=== PATIENT | male | born 1980 | race African-American/Black ===

== ENCOUNTER 2018-03-25 20:47 | Emergency (ER) | payer SELFPAY ==
--- OUTSIDE RECORDS SUMMARY | 2018-03-25 20:49 | XMS REPORT ---
:1980 [facility] Organization [facility] Address [address] [place] [address] Dr. Michel [address] [place] [id number] Care Team Providers Name Role Phone Unavailable Unavailable Unavailable Problems This patient has no known problems. Allergies, Adverse Reactions, Alerts This patient has no known allergies or adverse reactions. Medications This patient has no known medications.
--- NOTE | 2018-03-25 23:15 | ER ---
Nurse's Notes [facility] Name: Alden Corona Age: 37 yrs Sex: Male : 1980 Arrival Date: 03/25/2018 Time: 20:53 Bed 13 Private MD: Diagnosis: Sprain of ankle Presentation: 03/25 20:58 Presenting complaint: Patient states: Left ankle swelling for about a week but pain lp1 began today; Able to bear weight but uncomfortable; denies any injury. Transition of care: patient was not received from another setting of care. Onset of symptoms was March 25, 2018. Risk Assessment: Do you want to hurt yourself or someone else? Patient reports no desire to harm self or others. Initial Sepsis Screen: Does the patient meet any 2 criteria? No. Patient's initial sepsis screen is negative. Does the patient have a suspected source of infection? No. Patient's initial sepsis screen is negative. Care prior to arrival: None. 20:58 Method Of Arrival: Ambulatory lp1 20:58 Acuity: SARA 4 lp1 Historical: - Allergies: 21:00 PENICILLINS; lp1 - Home Meds: 21:00 "HIV med" [Active]; lp1 - PMHx: 21:00 HIV; lp1 - PSHx: 21:00 Knee surgery; lp1 - Immunization history:: Adult Immunizations up to date. - Social history:: Smoking status: Patient/guardian denies using tobacco. - Ebola Screening: : No symptoms or risks identified at this time. Screenin:00 Abuse screen: Denies threats or abuse. Denies injuries from another. Nutritional lp1 screening: No deficits noted. Tuberculosis screening: No symptoms or risk factors identified. Fall Risk None identified. Assessment: 22:13 General: Appears in no apparent distress. comfortable, Behavior is calm, cooperative, tl2 appropriate for age. Pain: Complains of pain in anterior aspect of right ankle. Neuro: Level of Consciousness is awake, alert, obeys commands, Oriented to person, place, time, situation. Respiratory: Airway is patent Respiratory effort is even, unlabored, Respiratory pattern is regular, symmetrical. GI: No signs and/or symptoms were reported involving the gastrointestinal system. Derm: Skin is pink, warm \\T\\ dry. Musculoskeletal: Swelling present in left ankle. 23:34 Reassessment: Patient appears in no apparent distress at this time. Patient and/or tl2 family updated on plan of care and expected duration. Pain level reassessed. Patient is alert, oriented x 3, equal unlabored respirations, skin warm/dry/pink. pt verbalized understanding of discharge instructions, need for follow up with ortho, crutch use and prescription usage. Vital Signs: 20:59 BP 141 / 91; Pulse 94; Resp 18; Temp 97.9(O); Pulse Ox 100% on R/A; Weight 96.62 kg; lp1 Height 5 ft. 11 in. (180.34 cm); Pain 5/10; 20:59 Body Mass Index 29.71 (96.62 kg, 180.34 cm) lp1 ED Course: 20:53 Patient arrived in ED. es 20:59 Triage completed. lp1 21:00 Arm band placed on left wrist. lp1 21:02 José Luis Max PA is PHCP. [facility] 21:02 Cameron Hardwick MD is Attending Physician. [facility] 22:05 X-ray completed. Portable x-ray completed in exam room. Patient tolerated procedure ls3 well. 22:06 Ankle Left 3 View In Process Unspecified. EDMS 22:12 Heather Santiago, RN is Primary Nurse. tl2 22:14 Patient has correct armband on for positive identification. Bed in low position. Call tl2 light in reach. Side rails up X 1. Adult w/ patient. 23:13 Shabbir Zhou MD is Referral Physician. [facility] 23:27 Orthoglass splint: left ankle. ag4 23:32 Crutch training done. tl2 23:34 No provider procedures requiring assistance completed. Patient did not have IV access tl2 during this emergency room visit. Administered Medications: No medications were administered Outcome: 23:14 Discharge ordered by . [facility] 23:34 Discharged to home with crutches, with friend. tl2 23:34 Condition: stable 23:34 Discharge instructions given to patient, Instructed on discharge instructions, follow up and referral plans. medication usage, crutch walking, Demonstrated understanding of instructions, follow-up care, medications, crutch walking, Prescriptions given X 1. 23:36 Patient left the ED. tl2 Signatures: Dispatcher [employer] EDMS José Luis Max PA PA jmm Salyer, Edna es Giang, Luana, RN RN lp1 Heather Santiago RN RN tl2 Zeina Peacock ls3 Alpesh, Tima ag4
--- NOTE | 2018-03-25 23:15 | EDPHYS ---
Physician Documentation [facility] Name: Alden Corona Age: 37 yrs Sex: Male : 1980 Arrival Date: 03/25/2018 Time: 20:53 Bed 13 Private MD: ED Physician Cameron Hardwick HPI: 03/25 21:18 This 37 yrs old Black Male presents to ER via Ambulatory with complaints of ANKLE jmm SWOLLEN. 21:18 The patient presents with an injury, pain. Onset: The symptoms/episode began/occurred 1 jmm week(s) ago. This is a 37 year old male that presents to the ED with complaints of left ankle pain and swelling. patient states he injured his knee approx 2 weeks ago. swelling to the ankle began 1 week ago with pain for the past day. denies known injury. patient is instructor kindergarten. Historical: - Allergies: 21:00 PENICILLINS; lp1 - Home Meds: 21:00 "HIV med" [Active]; lp1 - PMHx: 21:00 HIV; lp1 - PSHx: 21:00 Knee surgery; lp1 - Immunization history:: Adult Immunizations up to date. - Social history:: Smoking status: Patient/guardian denies using tobacco. - Ebola Screening: : No symptoms or risks identified at this time. ROS: 21:18 Constitutional: Negative for fever, chills, and weight loss, Cardiovascular: Negative jmm for chest pain, palpitations, and edema, Respiratory: Negative for shortness of breath, cough, wheezing, and pleuritic chest pain. 21:18 MS/extremity: Positive for pain, swelling. 21:18 All other systems are negative. Exam: 21:18 Constitutional: This is a well developed, well nourished patient who is awake, alert, jmm and in no acute distress. Head/Face: atraumatic. Eyes: EOMI, no conjunctival erythema appreciated ENT: Moist Mucus Membranes Neck: Trachea midline, Supple Chest/axilla: Normal chest wall appearance and motion. Cardiovascular: Regular rate and rhythm. No edema appreciated Respiratory: Normal respirations, no respiratory distress appreciated Back: Normal ROM 21:18 Musculoskeletal/extremity: swelling is appreciated to the left lateral malleolus, compartments are soft, dull dorsalis pulse, NVI. 21:18 Skin: Appearance: Color: normal in color. 21:18 Neuro: Orientation: is normal, Mentation: is normal, Memory: is normal. 21:18 Psych: Behavior/mood is pleasant, cooperative. Vital Signs: 20:59 BP 141 / 91; Pulse 94; Resp 18; Temp 97.9(O); Pulse Ox 100% on R/A; Weight 96.62 kg; lp1 Height 5 ft. 11 in. (180.34 cm); Pain 5/10; 20:59 Body Mass Index 29.71 (96.62 kg, 180.34 cm) lp1 Procedures: 21:18 Splinting: Splint applied to left leg using Orthoglass splint, applied by tech. jonathon Examined by me, post splint application: neurovascular intact, 2+ distal pulses palpable, brisk capillary refill noted, Patient tolerated well. MDM: 21:18 Patient medically screened. [facility] 23:13 Data reviewed: vital signs, nurses notes. Counseling: I had a detailed discussion with jonathon the patient and/or guardian regarding: the historical points, exam findings, and any diagnostic results supporting the discharge/admit diagnosis, radiology results, the need for outpatient follow up, to return to the emergency department if symptoms worsen or persist or if there are any questions or concerns that arise at home. 03/25 21:56 Order name: Ankle Left 3 View [facility] 03/25 23:04 Order name: Posterior Orthoglass Ankle Splint; Complete Time: 23:24 [facility] 03/25 23:04 Order name: Crutches; Complete Time: 23:32 [facility] Administered Medications: No medications were administered Disposition: 03/26 03:57 Co-signature as Attending Physician, Cameron Hardwick MD I agree with the assessment and wa plan of care. Disposition: 03/25/18 23:14 Discharged to Home. Impression: Sprain of ankle. - Condition is Stable. - Discharge Instructions: Ankle Sprain. - Prescriptions for Ibuprofen 800 mg Oral Tablet - take 1 tablet by ORAL route every 8 hours As needed take with food; 30 tablet. - Medication Reconciliation Form, Thank You Letter, Antibiotic Education, Prescription Opioid Use form. - Follow up: Shabbir Zhou MD; When: 2 - 3 days; Reason: Recheck today's complaints, Continuance of care, Re-evaluation by your physician. Signatures: Dispatcher [employer] EDIA José Luis Max PA PA jmm Pena, Laura, RN RN lp1 Heather Santiago RN RN tl2 Cameron Hardwick MD MD wa Corrections: (The following items were deleted from the chart) 03/25 21:56 21:41 Ankle Left W Comparison+RAD.RAD.BRZ ordered. [facility] 23:36 23:14 03/25/2018 23:14 Discharged to Home. Impression: Sprain of ankle. Condition is tl2 Stable. Forms are Medication Reconciliation Form, Thank You Letter, Antibiotic Education, Prescription Opioid Use. Follow up: Dr. Shabbir Zhou; When: 2 - 3 days; Reason: Recheck today's complaints, Continuance of care, Re-evaluation by your physician. jonathon
--- NOTE | 2018-03-26 09:09 | RAD REPORT ---
EXAM DESCRIPTION: RAD - Ankle Left 3 View -03/25/2018 10:05 pm CLINICAL HISTORY: Left ankle pain FINDINGS: No fracture or dislocation is seen. Soft tissue swelling is present. Mild osteoarthritis is seen
== END 2018-03-25 23:36 | disposition home or self-care (01) ==
LOC: ER 20:47
PROC: 2W3RX1Z Immobilization of Left Lower Leg using Splint (ICD-10-PCS; principal; 2018-03-25)
DX: S93.402A Sprain of unspecified ligament of left ankle, initial encounter (principal); X58.XXXA Exposure to other specified factors, initial encounter; Y93.89 Activity, other specified; Y92.9 Unspecified place or not applicable; Z21 Asymptomatic human immunodeficiency virus [HIV] infection status; Z88.0 Allergy status to penicillin
CPT/HCPCS: 99283

== ENCOUNTER 2018-04-26 11:50 | Emergency (ER) | payer SELFPAY ==
--- OUTSIDE RECORDS SUMMARY | 2018-04-26 11:52 | XMS REPORT ---
:1980 [facility] Address [address] [place] [address] Dr. Michel [address] [place] [id number] Care Team Providers Name Role Phone Unavailable Unavailable Unavailable Problems This patient has no known problems. Allergies, Adverse Reactions, Alerts This patient has no known allergies or adverse reactions. Medications This patient has no known medications.
--- NOTE | 2018-04-26 13:29 | RAD REPORT ---
EXAM DESCRIPTION: RAD - Chest Single View - 04/26/2018 1:14 pm CLINICAL HISTORY: Cough and congestion COMPARISON: None. TECHNIQUE: AP portable chest image was obtained 1303 hours . FINDINGS: Lungs are clear. Heart and vasculature are normal. No measurable pleural effusion and no p neumothorax. No acute bony abnormality seen. No acute aortic findings suspected. IMPRESSION: No acute cardiopulmonary process.
[2018-04-26] MEDS ORDERED: MAGNE/ALUM HYDROXD 30 ML UCUP ONE (13:30)
[2018-04-26] MEDS ORDERED: AZITHROMYCIN 250 MG TAB ONE (13:30)
[2018-04-26] MEDS ORDERED: LIDOCAINE VISCOUS 2% SOLN 15 ML UDC ONE (13:31)
[2018-04-26] MEDS ORDERED: KETOROLAC 30 MG/ML INJ ONE (13:31)
[2018-04-26] MEDS ORDERED: NA CHLORIDE 0.9% 1,000 ML ONE (13:31)
[2018-04-26] MEDS ORDERED: ONDANSETRON 4 MG/2 ML VIAL ONE (13:31)
[2018-04-26] MEDS ORDERED: FAMOTIDINE 20 MG/2 ML VIAL IV ONE (13:31)
[2018-04-26] MEDS ORDERED: MORPHINE 4 MG/ML SYR ONE (13:31)
[2018-04-26 13:48] LABS: Absolute Lymphocytes (CBC) 3.7 K/uL (0.7-4.9); Absolute Monocytes 0.8 K/uL (0.1-1.3); Absolute Neutrophil 4.9 K/uL (1.8-8.0); Basophils % 0.8 % (0-1.3); Eosinophils % 1.9 % (0-4.4); Hematocrit 37.1 % (39.6-49.0); Lymphocytes % 38.2 % (15.3-44.8); MPV 8.5 fL (7.6-11.3); Monocytes % 8.6 % (3.3-12.3); RBC Red Blood Cell Count 4.26 M/uL (4.33-5.43)
[2018-04-26 14:06] LABS: ALT/SGPT 31 U/L (12-78); AST/SGOT 25 U/L (15-37); Albumin 3.1 g/dL (3.4-5.0); Alkaline Phosphatase 70 U/L (45-117); BUN Blood Urea Nitrogen 5 mg/dL (7-18); Bicarbonate 31 mmol/L (21-32); Bilirubin Direct 0.1 mg/dL (0-0.2); Bilirubin Total 0.5 mg/dL (0.2-1.0); Glucose Level 93 mg/dL (74-106); Lipase 66 U/L (73-393); Potassium 3.7 mmol/L (3.5-5.1); Protein, Total 9.2 g/dL (6.4-8.2); Sodium Level 139 mmol/L (136-145)
--- NOTE | 2018-04-26 14:22 | ER ---
Nurse's Notes [facility] Name: Alden Corona Age: 38 yrs Sex: Male : 1980 Arrival Date: 04/26/2018 Time: 11:53 Bed 17 Private MD: Diagnosis: Acute bronchitis;Pain localized to upper abdomen Presentation: 04/26 11:58 Presenting complaint: N/V, productive cough, headache, sore throat, and left sided hb abdominal pain x 2 days. Transition of care: patient was not received from another setting of care. Onset of symptoms was April 25, 2018. Risk Assessment: Do you want to hurt yourself or someone else? Patient reports no desire to harm self or others. Care prior to arrival: None. 11:58 Method Of Arrival: Ambulatory hb 11:58 Acuity: SARA 3 hb 14:32 Initial Sepsis Screen: Does the patient meet any 2 criteria? No. Patient's initial tw2 sepsis screen is negative. Does the patient have a suspected source of infection? No. Patient's initial sepsis screen is negative. Historical: - Allergies: 12:00 PENICILLINS; hb - Home Meds: 12:00 "HIV med" [Active]; hb - PMHx: 12:00 HIV; hb - PSHx: 12:00 Knee surgery; hb - Immunization history:: Adult Immunizations up to date. - Social history:: Smoking status: Patient/guardian denies using tobacco, Patient/guardian denies using alcohol, street drugs, The patient lives with family. - Ebola Screening: : No symptoms or risks identified at this time. - Family history:: not pertinent. Screenin:31 Abuse screen: Denies threats or abuse. Nutritional screening: No deficits noted. tw2 Tuberculosis screening: No symptoms or risk factors identified. Fall Risk None identified. Assessment: 12:15 General: Appears in no apparent distress. Behavior is calm, cooperative, appropriate tw2 for age. Pain: Denies pain. Neuro: Level of Consciousness is awake, alert, obeys commands, Oriented to person, place, time, situation. Cardiovascular: Reports shortness of breath, Denies chest pain, Heart tones S1 S2 Patient's skin is warm and dry. Respiratory: Reports cough that is Airway is patent Respiratory effort is even, unlabored, Respiratory pattern is regular, symmetrical, Breath sounds are clear bilaterally. GI: Abdomen is flat, non-distended, Bowel sounds present X 4 quads. Reports nausea, vomiting. : No signs and/or symptoms were reported regarding the genitourinary system. EENT: Reports nasal congestion nasal discharge. Derm: No signs and/or symptoms reported regarding the dermatologic system. Musculoskeletal: Range of motion: intact in all extremities. 14:31 Reassessment: Patient appears in no apparent distress at this time. Patient and/or tw2 family updated on plan of care and expected duration. Pain level reassessed. Patient is alert, oriented x 3, equal unlabored respirations, skin warm/dry/pink. Patient states feeling better. Vital Signs: 11:59 BP 146 / 95; Pulse 87; Resp 16; Temp 98.4; Pulse Ox 100% on R/A; Weight 95.25 kg; hb Height 5 ft. 11 in. (180.34 cm); Pain 7/10; 14:30 BP 138 / 88; Pulse 80; Resp 17; Pulse Ox 100% on R/A; tw2 11:59 Body Mass Index 29.29 (95.25 kg, 180.34 cm) hb ED Course: 11:53 Patient arrived in ED. as 11:59 Triage completed. hb 12:00 Arm band placed on left wrist. hb 12:05 Bed in low position. Call light in reach. Pulse ox on. NIBP on. tw2 12:06 Jacob Sgugs MD is Attending Physician. ma2 12:17 Mildred Morfin, DORINDA is Primary Nurse. tw2 13:14 Chest Single View XRAY In Process Unspecified. EDMS 13:24 Missed attempt(s): 20 gauge in right antecubital area. Bleeding controlled, band aid mw2 applied, catheter tip intact. IV discontinued, blood was collected before IV was dc'd. 13:26 Inserted saline lock: 20 gauge in left antecubital area, using aseptic technique. mw2 14:30 Awaiting: provider to consult pt prior to discharge and completion of IV fluids. tw2 14:44 No provider procedures requiring assistance completed. IV discontinued, intact, tw2 bleeding controlled, No redness/swelling at site. Pressure dressing applied. Administered Medications: 12:30 Drug: Pepcid 20 mg Route: IVP; Site: left antecubital; tw2 14:44 Follow up: Response: No adverse reaction tw2 12:30 Drug: GI Cocktail without - (Maalox Suspension 30 ml, Lidocaine Liquid 2 % 15 tw2 ml) Route: PO; 14:44 Follow up: Response: No adverse reaction tw2 12:32 Drug: morphine 4 mg Route: IVP; Site: left antecubital; tw2 14:44 Follow up: Response: No adverse reaction tw2 12:32 Drug: Zofran 4 mg Route: IVP; Site: left antecubital; tw2 14:44 Follow up: Response: No adverse reaction tw2 12:34 Drug: TORadol 30 mg Route: IVP; Site: left antecubital; tw2 14:44 Follow up: Response: No adverse reaction; Pain is decreased tw2 14:44 Follow up: Response: No adverse reaction tw2 13:37 Drug: NS 0.9% 1000 ml Route: IV; Rate: 1 bolus; Site: left antecubital; tw2 14:44 Follow up: Response: No adverse reaction; IV Status: Completed infusion; IV Intake: tw2 1000ml 13:39 Drug: AZITHromycin 500 mg Route: PO; tw2 14:44 Follow up: Response: No adverse reaction tw2 Intake: 14:44 IV: 1000ml; Total: 1000ml. tw2 Outcome: 14:21 Discharge ordered by . ma2 14:44 Patient left the ED. dm5 14:44 Discharged to home ambulatory. tw2 14:44 Condition: stable 14:44 Discharge instructions given to patient, Instructed on discharge instructions, follow up and referral plans. the need for admit, no drinking with medication, no driving heavy equipment, medication usage, Demonstrated understanding of instructions, follow-up care, medications, Prescriptions given X 4. Signatures: Dispatcher [employer] EDVA Afua Ramesh RN RN dm5 Ariane Hernandez Heather, RN RN hb Wise, Tara, RN RN tw2 Jacob Suggs MD MD ma2 Donta Mcdonnell mw2 Corrections: (The following items were deleted from the chart) 13:45 13:26 Inserted saline lock: 20 gauge in left antecubital area, using aseptic technique. mw2 Blood collected. mw2
--- NOTE | 2018-04-26 14:22 | EDPHYS ---
Physician Documentation [facility] Name: Alden Corona Age: 38 yrs Sex: Male : 1980 Arrival Date: 04/26/2018 Time: 11:53 Bed 17 Private MD: ED Physician Jacob Suggs HPI: 04/26 12:58 This 38 yrs old Black Male presents to ER via Ambulatory with complaints of Flu ma2 Symptoms. 12:58 Onset: The symptoms/episode began/occurred gradually, 2 day(s) ago. Severity of ma2 symptoms: At their worst the symptoms were moderate, in the emergency department the symptoms are unchanged. Associated signs and symptoms: Pertinent negatives: ear ache, rhinorrhea, vomiting. The patient has experienced similar episodes in the past. Historical: - Allergies: 12:00 PENICILLINS; hb - Home Meds: 12:00 "HIV med" [Active]; hb - PMHx: 12:00 HIV; hb - PSHx: 12:00 Knee surgery; hb - Immunization history:: Adult Immunizations up to date. - Social history:: Smoking status: Patient/guardian denies using tobacco, Patient/guardian denies using alcohol, street drugs, The patient lives with family. - Ebola Screening: : No symptoms or risks identified at this time. - Family history:: not pertinent. ROS: 12:58 Constitutional: Negative for fever, chills, and weight loss, Cardiovascular: Negative ma2 for chest pain, palpitations, and edema, Respiratory: Negative for shortness of breath, cough, wheezing, and pleuritic chest pain. 12:58 MS/Extremity: Negative for injury and deformity. 12:58 ENT: Positive for nasal discharge, rhinorrhea, Negative for tinnitus. 12:58 Respiratory: Positive for cough, Negative for hemoptysis, shortness of breath, acute changes. 12:58 All other systems are negative. Exam: 12:58 Constitutional: This is a well developed, well nourished patient who is awake, alert, ma2 and in no acute distress. ENT: Nares patent. No nasal discharge, no septal abnormalities noted. Tympanic membranes are normal and external auditory canals are clear. Oropharynx with no redness, swelling, or masses, exudates, or evidence of obstruction, uvula midline. Mucous membranes moist. Chest/axilla: Normal chest wall appearance and motion. Nontender with no deformity. No lesions are appreciated. Cardiovascular: Regular rate and rhythm with a normal S1 and S2. No gallops, murmurs, or rubs. Normal PMI, no JVD. No pulse deficits. Respiratory: Lungs have equal breath sounds bilaterally, clear to auscultation and percussion. No rales, rhonchi or wheezes noted. No increased work of breathing, no retractions or nasal flaring. Abdomen/GI: Soft, non-tender, with normal bowel sounds. No distension or tympany. No guarding or rebound. No evidence of tenderness throughout. MS/ Extremity: Pulses equal, no cyanosis. Neurovascular intact. Full, normal range of motion. Neuro: Awake and alert, GCS 15, oriented to person, place, time, and situation. Cranial nerves II-XII grossly intact. Motor strength 5/5 in all extremities. Sensory grossly intact. Cerebellar exam normal. Normal gait. Vital Signs: 11:59 BP 146 / 95; Pulse 87; Resp 16; Temp 98.4; Pulse Ox 100% on R/A; Weight 95.25 kg; hb Height 5 ft. 11 in. (180.34 cm); Pain 7/10; 14:30 BP 138 / 88; Pulse 80; Resp 17; Pulse Ox 100% on R/A; tw2 11:59 Body Mass Index 29.29 (95.25 kg, 180.34 cm) hb MDM: 12:06 Patient medically screened. [facility] 12:58 Differential Diagnosis: Bronchitis Influenza Upper Respiratory Infection Sinusitis ri2 Pharyngitis. 14:20 Data reviewed: vital signs, nurses notes. Counseling: I had a detailed discussion with ma2 the patient and/or guardian regarding: the historical points, exam findings, and any diagnostic results supporting the discharge/admit diagnosis, the presence of at least one elevated blood pressure reading (>120/80) during this emergency department visit, the need for outpatient follow up. Response to treatment: the patient's symptoms have markedly improved after treatment. 04/26 12:41 Order name: Influenza Screen (a \\T\\ B); Complete Time: 14:20 [facility] 03 12:41 Order name: Basic Metabolic Panel; Complete Time: 14:20 [facility] 04/26 12:41 Order name: CBC with Diff; Complete Time: 14:20 [facility] 04/26 12:41 Order name: Creatinine for Radiology; Complete Time: 14:20 [facility] 04/26 12:41 Order name: Hepatic Function; Complete Time: 14:20 [facility] 04/26 12:41 Order name: Lipase; Complete Time: 14:20 [facility] 04/26 12:41 Order name: Chest Single View XRAY; Complete Time: 14:01 [facility] 04/26 12:41 Order name: IV Saline Lock; Complete Time: 13:36 [facility] 04/26 12:41 Order name: Labs collected and sent; Complete Time: 13:36 ma2 Administered Medications: 12:30 Drug: Pepcid 20 mg Route: IVP; Site: left antecubital; tw2 14:44 Follow up: Response: No adverse reaction tw2 12:30 Drug: GI Cocktail without - (Maalox Suspension 30 ml, Lidocaine Liquid 2 % 15 tw2 ml) Route: PO; 14:44 Follow up: Response: No adverse reaction tw2 12:32 Drug: morphine 4 mg Route: IVP; Site: left antecubital; tw2 14:44 Follow up: Response: No adverse reaction tw2 12:32 Drug: Zofran 4 mg Route: IVP; Site: left antecubital; tw2 14:44 Follow up: Response: No adverse reaction tw2 12:34 Drug: TORadol 30 mg Route: IVP; Site: left antecubital; tw2 14:44 Follow up: Response: No adverse reaction; Pain is decreased tw2 14:44 Follow up: Response: No adverse reaction tw2 13:37 Drug: NS 0.9% 1000 ml Route: IV; Rate: 1 bolus; Site: left antecubital; tw2 14:44 Follow up: Response: No adverse reaction; IV Status: Completed infusion; IV Intake: tw2 1000ml 13:39 Drug: AZITHromycin 500 mg Route: PO; tw2 14:44 Follow up: Response: No adverse reaction tw2 Disposition: 04/26/18 14:21 Discharged to Home. Impression: Acute bronchitis, Pain localized to upper abdomen. - Condition is Stable. - Discharge Instructions: Acute Bronchitis, [id number]. - Prescriptions for Tylenol- Codeine #3 300-30 mg Oral Tablet - take 2 tablet by ORAL route every 6 hours As needed; 30 tablet. Tessalon Perles 100 mg Oral Capsule - take 1 capsule by ORAL route every 8 hours As needed; 15 capsule. Zithromax Z- Junior 250 mg Oral Tablet - take 1 tablet by ORAL route as directed for 5 days Day 1 - take two (2) tablets one time. Day 2, 3, 4 , 5 take one (1) tablet once daily.; 6 tablet. Pepcid 20 mg Oral Tablet - take 1 tablet by ORAL route once daily for 10 days; 10 tablet. - Work release form, Medication Reconciliation Form, Thank You Letter, Antibiotic Education, Prescription Opioid Use form. - Follow up: Private Physician; When: Tomorrow; Reason: Continuance of care. Signatures: Dispatcher [employer] Afua Campbell RN RN dm5 Cherelle Delacruz RN RN Mildred Morfin RN RN tw2 Jacob Suggs MD MD ma2 Corrections: (The following items were deleted from the chart) 14:44 14:21 04/26/2018 14:21 Discharged to Home. Impression: Acute bronchitis; Pain localized dm5 to upper abdomen. Condition is Stable. Forms are Work release form, Medication Reconciliation Form, Thank You Letter, Antibiotic Education, Prescription Opioid Use. Follow up: Private Physician; When: Tomorrow; Reason: Continuance of care. ma2
== END 2018-04-26 14:44 | disposition home or self-care (01) ==
LOC: ER 11:50
DX: J20.9 Acute bronchitis, unspecified (principal); R10.10 Upper abdominal pain, unspecified
CPT/HCPCS: 36415; 71045; 80048; 80076; 83690; 85025; 87804; 96361; 96374; 96375; 99284; J2405; J7030

== ENCOUNTER 2021-08-04 23:06 | Emergency (ER) | payer SELFPAY ==
--- OUTSIDE RECORDS SUMMARY | 2021-08-04 23:09 | XMS REPORT | Continuity of Care Document ---
:1980 Author Organization [facility] t Address [facility] [address] [place] [address] Care Team Providers Name Role Phone Pcp, Does Not Have A Primary Care Physician WAGNER Attending Clinician Unavailable [facility] Attending Clinician Unavailable Wagner TOVAR Attending Clinician Irma SETH, L Attending Clinician Unavailable Verónica Newman LVN Attending Clinician Unavailable Erica Lambert MD Attending Clinician Felix ANDERSON L Attending Clinician Unavailable Problems Condition Condition Condition Status Onset Resolution Last Treating Co mments Source Name Details Category Date Date Treatment Clinician Date Vomiting Vomiting Disease Active 2018-02 Unive rs 2-10 ity of 00:00: [place] 00 [facility] Fever in Fever in Disease Active 2018-02 Unive rs adult adult 2- ity of 00:00: [place] 00 [facility] History of History of Disease Active 2019-0 U nivers gonorrhea gonorrhea 3-08 ity of 00:00: [place] 00 [facility] History of History of Disease Active 2019-0 U nivers syphilis syphilis 3-08 ity of 00:00: [place] 00 [facility] 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 1-22 it y of ciency ciency 00:00: [place] virus virus 00 Medical infection) infection) Br anch Allergies, Adverse Reactions, Alerts Allergy Allergy Status Severity Reaction(s) Onset Inactive Treating Comm ents Source Name Type Date Date Clinician Coconut Propensi Active Swelling 2018-02 Unive rs ty to 2-09 ity of adverse 00:00: [place] reaction 00 Medical s Branch Pineappl Propensi Active Swelling 2019- Univ ers e ty to 03-26 ity of adverse 00:00: [place] reaction 00 Medical s Branch Seafood/ Propensi Active Swelling 2019- Univ ers Fish ty to 03-26 ity of adverse 00:00: [place] reaction 00 Medical s Branch COCONUT DRUG Active Swelling 2018- Univers INGREDI 03-26 ity of 00:00: [place] 00 [facility] PINEAPPL DRUG Active Swelling 2018- Univer s E INGREDI 03-26 ity of 00:00: [place] 00 [facility] SEAFOOD/ Food Active Swelling 2018- Univer s FISH 03-26 ity of 00:00: [place] 00 [facility] Penicill Propensi Active Unknown - 2018- Child Uni vers in ty to See comments 03-08 wen ity of adverse 00:00: allergy. [place] reaction 00 Medical s Branch PENICILL DRUG Active Unknown-Cmnt 2018-0 Un favio IN INGREDI 03-08 ity of 00:00: [facility] Social History Social Habit Start Date Stop Date Quantity Comments Source History of Cigarette Smoker Universi ty of tobacco use [facility] Tobacco use and 2021-06-20 2021-06-20 Former user Univers ty of exposure 00:00:00 00:00:00 [facility][birth year] At [birth year] [facility] Smoking Status Start Date Stop Date Source Former smoker 2021-06-20 00:00:00 2021-06-20 00:00:00 Universi ty of [facility] Current every day 2019-04-07 00:00:00 [facility] smoker [facility] Medications Ordered Filled Start Stop Current Ordering Indication Dosage Frequency Signature Comments Components Source Medication Medication Date Date Medication? Clinician (SIG) Name Name doxycycline Yes [id number] 1 po BID x Univers hyclate 100 06-20 28 days ity of mg capsule 00:00: [place] 00 [facility] doxycycline Yes [id number] 1 po BID x Univers hyclate 100 06-20 28 days ity of mg capsule 00:00: [facility] BIKTARVY Yes [id number] TAKE ONE U nivers 50-200-25 5-04 TABLET BY ity o f mg tablet 00:00: MOUTH [place] 00 DAILY Medical Branch BIKTARVY 2021-0 Yes [id number] TAKE ONE U nivers 50-200-25 5-04 TABLET BY ity o f mg tablet 00:00: MOUTH [place] 00 DAILY Medical Branch BIKTARVY 2021-0 Yes [id number] TAKE ONE U nivers 50-200-25 5-04 TABLET BY ity o f mg tablet 00:00: MOUTH [place] 00 DAILY Medical Branch BIKTARVY 2021-0 Yes [id number] TAKE ONE U nivers 50-200-25 5-04 TABLET BY ity o f mg tablet 00:00: MOUTH [place] 00 DAILY Medical Branch BIKTARVY 2020-1 Yes [id number] TAKE ONE U nivers 50-200-25 2-17 TABLET BY ity o f mg tablet 00:00: MOUTH [place] 00 DAILY Medical Branch BIKTARVY 2020-1 Yes [id number] TAKE ONE U nivers 50-200-25 2-17 TABLET BY ity o f mg tablet 00:00: [employer] 00 DAILY Medical Branch BIKTARVY 2020- 2022- No [id number] TAKE ONE Univers 50-200-25 2-17 05-04 TABLET BY ity of mg tablet 00:00: 00:00 [facility] [place] 00 :00 DAILY Medical Branch Immunizations Ordered Filled Immunization Date Status Comments [facility] e Immunization Name Name SARS-COV-2 COVID-19 2020-12-20 Completed Unive rsity of PFIZER VACCINE 00:00:00 [facility] Influenza Virus 2020-12-20 Completed Universit y of Vaccine Quad IM, 00:00:00 [facility] dical Preserv and ABX Branch Free 6 MO-64 YRS SARS-COV-2 COVID-19 2020-12-20 Completed Unive rsity of PFIZER VACCINE 00:00:00 [facility] Influenza Virus 2020-12-20 Completed Universit y of Vaccine Quad IM, 00:00:00 [place] Me dical Preserv and ABX Branch Free 6 MO-64 YRS SARS-COV-2 COVID-19 2020-12-20 Completed Unive rsity of PFIZER VACCINE 00:00:00 [facility] Influenza Virus 2020-12-20 Completed Universit y of Vaccine Quad IM, 00:00:00 [place] Me dical Preserv and ABX Branch Free 6 MO-64 YRS SARS-COV-2 COVID-19 2020-12-20 Completed Unive rsity of PFIZER VACCINE 00:00:00 [facility] Influenza Virus 2020-12-20 Completed Universit y of Vaccine Quad IM, 00:00:00 [facility] dical Preserv and ABX Branch Free 6 MO-64 YRS SARS-COV-2 COVID-19 2020-12-20 Completed Unive rsity of PFIZER VACCINE 00:00:00 [facility] Influenza Virus 2020-12-20 Completed Universit y of Vaccine Quad IM, 00:00:00 [facility] dical Preserv and ABX Branch Free 6 MO-64 YRS SARS-COV-2 COVID-19 2020-12-20 Completed Unive rsity of PFIZER VACCINE 00:00:00 [facility] Influenza Virus 2020-12-20 Completed Universit y of Vaccine Quad IM, 00:00:00 [facility] dical Preserv and ABX Branch Free 6 MO-64 YRS Influenza Virus 2019-12-20 Completed Universit y of Vaccine Quad .5 mL 00:00:00 [place] [facility] 6+ MO Branch Influenza Virus 2019-12-20 Completed Universit y of Vaccine Quad .5 mL 00:00:00 [place] [facility] IM 6+ MO Branch Influenza Virus 2019-12-20 Completed Universit y of Vaccine Quad .5 mL 00:00:00 [place] [facility] 6+ MO Branch Influenza Virus 2019-12-20 Completed Universit y of Vaccine Quad .5 mL 00:00:00 [place] [facility] 6+ MO Branch Influenza Virus 2019-12-20 Completed Universit y of Vaccine Quad .5 mL 00:00:00 [place] [facility] 6+ MO Branch Influenza Virus 2019-12-20 Completed Universit y of Vaccine Quad .5 mL 00:00:00 [place] [facility] 6+ MO Branch Hepatitis A Adult 2019-01-03 Completed Univers ity of 00:00:00 [facility] HPV9 2019-01-03 Completed University of 00:00:00 [facility] Hepatitis A Adult 2019-01-03 Completed Univers ity of 00:00:00 [facility] HPV9 2019-01-03 Completed University of 00:00:00 [facility] Hepatitis A Adult 2019-01-03 Completed Univers ity of 00:00:00 [facility] HPV9 2019-01-03 Completed University of 00:00:00 [facility] Hepatitis A Adult 2019-01-03 Completed Univers ity of 00:00:00 [facility] HPV9 2019-01-03 Completed University of 00:00:00 [facility] Hepatitis A Adult 2019-01-03 Completed Univers ity of 00:00:00 [facility] HPV9 2019-01-03 Completed University of 00:00:00 [facility] Hepatitis A Adult 2019-01-03 Completed Univers ity of 00:00:00 [facility] HPV9 2019-01-03 Completed University of 00:00:00 [facility] Influenza Virus 2018-11-18 Completed Universit y of Vaccine Quad .5 mL 00:00:00 [facility] 6+ MO [place] Influenza Virus 2018-11-18 Completed Universit y of Vaccine Quad .5 mL 00:00:00 [facility] 6+ MO [place] Influenza Virus 2018-11-18 Completed Universit y of Vaccine Quad .5 mL 00:00:00 [facility] 6+ MO Branch Influenza Virus 2018-11-18 Completed Universit y of Vaccine Quad .5 mL 00:00:00 [facility] 6+ MO [place] Influenza Virus 2018-11-18 Completed Universit y of Vaccine Quad .5 mL 00:00:00 [facility] 6+ MO [place] Influenza Virus 2018-11-18 Completed Universit y of Vaccine Quad .5 mL 00:00:00 [facility] 6+ MO Branch Pneumococcal 2018-11-04 Completed University o f Polysaccharide, 00:00:00 [place] Med ical PPSV23 (PNEUMOVAX) Branch Pneumococcal 2018-11-04 Completed University o f Polysaccharide, 00:00:00 [place] Med ical PPSV23 (PNEUMOVAX) Branch Pneumococcal 2018-11-04 Completed University o f Polysaccharide, 00:00:00 [place] Med ical PPSV23 (PNEUMOVAX) Branch Pneumococcal 2018-11-04 Completed University o f Polysaccharide, 00:00:00 [place] Med ical PPSV23 (PNEUMOVAX) Branch Pneumococcal 2018-11-04 Completed University o f Polysaccharide, 00:00:00 [place] [facility] ical PPSV23 (PNEUMOVAX) Branch Pneumococcal 2018-11-04 Completed University o f Polysaccharide, 00:00:00 [place] [facility] ical PPSV23 (PNEUMOVAX) Branch Hepatitis A Adult 2018-06-22 Completed Univers ity of 00:00:00 [facility] Pneumococcal 13 2018-06-22 Completed Universit y of Conjugate, PCV13 00:00:00 [facility] dical (Prevnar 13) Branch Hepatitis A Adult 2018-06-22 Completed Univers ity of 00:00:00 [facility] Pneumococcal 13 2018-06-22 Completed Universit y of Conjugate, PCV13 00:00:00 [facility] dical (Prevnar 13) Branch Hepatitis A Adult 2018-06-22 Completed Univers ity of 00:00:00 [facility] Pneumococcal 13 2018-06-22 Completed Universit y of Conjugate, PCV13 00:00:00 [facility] dical (Prevnar 13) Branch Hepatitis A Adult 2018-06-22 Completed Univers ity of 00:00:00 [facility] Pneumococcal 13 2018-06-22 Completed Universit y of Conjugate, PCV13 00:00:00 [facility] dical (Prevnar 13) Branch Hepatitis A Adult 2018-06-22 Completed Univers ity of 00:00:00 [facility] Pneumococcal 13 2018-06-22 Completed Universit y of Conjugate, PCV13 00:00:00 [facility] dical (Prevnar 13) Branch Hepatitis A Adult 2018-06-22 Completed Univers ity of 00:00:00 [facility] Pneumococcal 13 2018-06-22 Completed Universit y of Conjugate, PCV13 00:00:00 [facility] dical (Prevnar 13) Branch Influenza Virus 2018-03-08 Completed Universit y of Vaccine Quad .5 mL 00:00:00 [facility] [place] [facility] IM 6+ MO Branch Influenza Virus 2018-03-08 Completed Universit y of Vaccine Quad .5 mL 00:00:00 [place] [facility] 6+ MO Branch Influenza Virus 2018-03-08 Completed Universit y of Vaccine Quad .5 mL 00:00:00 [facility] [place] [facility] IM 6+ MO Branch Influenza Virus 2018-03-08 Completed Universit y of Vaccine Quad .5 mL 00:00:00 [place] [facility] IM 6+ MO Branch Influenza Virus 2018-03-08 Completed Universit y of Vaccine Quad .5 mL 00:00:00 [facility] [place] [facility] IM 6+ MO Branch Influenza Virus 2018-03-08 Completed Universit y of Vaccine Quad .5 mL 00:00:00 [facility] 6+ MO Branch Procedures This patient has no known procedures. Encounters Start End Encounter Admission Attending Care Care Encounter Source Date/Time Date/Time Type Type Clinicians Facility Department ID 2021-09-26 2021-09-26 Outpatient R WAGNER [facility] [id number] Univers 10:00:00 10:00:[id number] [facility] 2021-06-20 2021-06-20 Vegetable Tier [facility] UNIVERSIT [id number] Univers 11:45:00 12:00:00 Visit Brittnee Edward HEALTH [id number] it[id number] [id number] [address] 2021-06-20 2021-06-20 Outpatient R WAGNER [facility] [id number] Univers 11:45:00 11:45:[address] [facility] 2021-06-20 2021-06-20 Outpatient R [facility] [id number] Univers 11:45:00 [facility]:45:[id number] 2021-06-20 Allen Solis UNIVERSIT [id number] Univers 00:00:00 00:00:00 Management Jarek L Y HEALTH [id number] [id number] [id number] [place] [id number] [place] 2021-06-18 2021-06-18 Charmaine Newman UNIVERSIT [id number] Univers 00:00:00 00:00:00 Jenn L Y HEALTH [id number] [id number] [id number] [place] [id number] [place] 2021-06-16 2021-06-16 Case Paty UNIVERSIT [id number] Univers 00:00:00 00:00:00 Management Jenn L Y HEALTH [id number] [id number] [phone] [place] [id number] [place] 2021-06-16 2021-06-16 Ephraim Lambert UNIVERSIT [id number] Univers 00:00:00 00:00:00 Zhanna Maldonado [facility] [id number] [id number] [id number] [address] 2021-05-12 2021-05-12 Case Felix, [facility] [id number] Univers 00:00:00 00:00:00 Management Hloly Sanches Y [facility] [id number] it[id number] [id number] [address] 2021-05-09 2021-05-09 Outpatient Flaquita EDWARD [facility] [id number] Univers 11:00:00 11:00:00 BRITTNEE choi of [facility] Results This patient has no known results.
--- NOTE | 2021-08-04 23:17 | ER ---
Nurse's Notes [facility] Name: Alden Corona Age: 41 yrs Sex: Male : 1980 Arrival Date: 08/04/2021 Time: 23:09 Bed Waiting Private MD: Diagnosis: ED Course: 08/04 23:09 Patient arrived in ED. bp1 Administered Medications: No medications were administered Outcome: 23:16 Patient left the ED. ld1 Signatures: Barbara Atkins bp1 Melani Castorena, RN RN ld1
== END 2021-08-04 23:16 | disposition left against medical advice (07) ==
LOC: ER 23:06
DX: Z02.9 Encounter for administrative examinations, unspecified (principal)

== ENCOUNTER 2022-07-18 13:35 | Emergency (ER) | payer OTHER ==
--- OUTSIDE RECORDS SUMMARY | 2022-07-18 13:42 | XMS REPORT | Continuity of Care Document ---
:1980 Author Organization [facility] t Address [address] [place] [address] Care Team Providers Name Role Phone Pcp, Patient Does Not Have A Primary Care Physician [id number] BRITTNEE EDWARD Attending Clinician Unavailable [facility] Attending Clinician Unavailable Brittnee Kerr Attending Clinician Jarek Solis RN Attending Clinician Unavailable Zev Yousif MA Attending Clinician Unavailable [facility] Attending Clinician Unavailable Netta Denton MA Attending Clinician Unavailable Doctor Unassigned, [place] Attending Clinician Unavailable Jenn Newman LVN Attending Clinician Unavailable Erika Durbin RN Attending Clinician Unavailable Holly Washington MA Attending Clinician Unavailable Vaccine, Gal [facility] Attending Clinician Unavailable Pancho Chin MD Attending Clinician Zhanna Lambert MD Attending Clinician [phone] Erika Robins RN Attending Clinician Unavailable Jud Ace LVN Attending Clinician Unavailable BRIANNA MICHELLE Attending Clinician Unavailable MILLER JHAVERI Attending Clinician Unavailable MILLER JHAVERI Admitting Clinician Unavailable Payers Payer Name Policy Type Policy Number Effective Date Expiration Date S ource Problems Condition Condition Condition Status Onset Resolution Last Treating Co mments Source Name Details Category Date Date Treatment Clinician Date Vomiting Vomiting Disease Active 2018-02 Unive rs 2-10 ity of 00:00: [address] Fever in Fever in Disease Active 2019-1 Unive rs adult adult 2-09 ity of 00:00: [place] [facility] History of History of Disease Active 2019 U nivers gonorrhea gonorrhea 3-08 ity of 00:00: [place] 00 [facility] History of History of Disease Active 2019 U nivers syphilis syphilis 3- ity of 00:00: [place] 00 [facility] 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 03-08 it y of ciency ciency 00:00: [place] virus virus 00 Medical infection) infection) Br anch Allergies, Adverse Reactions, Alerts Allergy Allergy Status Severity Reaction(s) Onset Inactive Treating Comm ents Source Name Type Date Date Clinician COCONUT DRUG Active Swelling 2018- Univers INGREDI 03-26 ity of 00:00: [place] 00 [facility] PINEAPPL DRUG Active Swelling 2018-02 Univer s E INGREDI 03-26 ity of 00:00: [place] 00 [facility] SEAFOOD/ Food Active Swelling 2018-02 Univer s FISH 03-26 ity of 00:00: [place] 00 [facility] Coconut Propensi Active Swelling 2018-02 Unive rs ty to 2 ity of adverse 00:00: [place] reaction 00 Medical Branch Pineappl Propensi Active Swelling 2018-02 Univ ers e ty to 03-26 ity of adverse 00:00: [place] reaction 00 Medical s Branch Seafood/ Propensi Active Swelling 2018-02 Univ ers Fish ty to 03-26 ity of adverse 00:00: [place] reaction 00 [facility] PENICILL DRUG Active Unknown-Cmnt Un favio IN INGREDI 03-08 ity of 00:00: [place] 00 [facility] Penicill Propensi Active Unknown - 2018- Child Uni vers in ty to See comments 03-08 wen ity of adverse 00:00: allergy. [place] reaction 00 [facility] [place] Social History Social Habit Start Date Stop Date Quantity Comments Source History of Cigarette Smoker Universi ty of tobacco use [facility] Exposure to 2022-01-06 2022-01-16 Not sure University of SARS-CoV-2 00:00:00 15:43:00 [facility] (event) [place] Tobacco Comment 2022-01-16 2022-01-16 Patient states he Un iversity of 00:00:00 00:00:00 vapes everyday [facility] Tobacco use and 2022-01-16 2022-01-16 Former smokeless Uni versity of exposure 00:00:00 00:00:00 tobacco user [facility] [place] [facility] Sex Assigned At [birth year] Universit y of 00:00:00 00:00:00 [facility] Smoking Status Start Date Stop Date Source Ex-smoker 2022-01-16 00:00:00 2022-01-16 00:00:00 Universi ty [facility] [place] [facility] Smokes tobacco daily 2019-04-07 00:00:00 [facility] ity [facility] Medications Ordered Filled Start Stop Current Ordering Indication Dosage Frequency Signature Comments Components Source Medication Medication Date Date Medication? Clinician (SIG) Name Name penicillin 2022- Yes [id number] 2.410 Univers g 07-17 ity of benzathine 16:15: 04:14 [place] (BICILLIN 00 :00 Medical L-A) Branch injection 2.4 Million Units BIKTARVY 2021-02 Yes [id number] 1{tbl} Take 1 U nivers 50-200-25 2-02 tablet by [place]y o f mg tablet [place] morning[place] BIKTARVY 2021-02 Yes [id number] 1{tbl} Take 1 U nivers 50-200-25 2-02 tablet by ity o f [place] tablet [place] morning. [place] BIKTARVY 2021-02 Yes [id number] 1{tbl} Take 1 U nivers 50-200-25 2-02 tablet by ity o f [place] tablet [place] morning[place] BIKTARVY 2021-02 Yes [id number] 1{tbl} Take 1 U nivers 50-200-25 2-02 tablet by ity o f [place] tablet [place] morning. [place] BIKTARVY 2021-02 Yes [id number] 1{tbl} Take 1 U nivers 50-200-25 2-02 tablet by ity o f [place] tablet [place] morning. [place] BIKTARVY 2021-02 Yes [id number] 1{tbl} Take 1 U nivers 50-200-25 2-02 tablet by ity o f [place] tablet [place] morning. [place] AMANDA 2021-02 Yes [id number] 1{tbl} Take 1 U nivers 50-200-25 2-02 tablet by ity o f [place] tablet [place] morning. [place] AMANDA 2021-02 Yes [id number] 1{tbl} Take 1 U nivers 50-200-25 2-02 tablet by ity o f [place] tablet [place] morning. [place] AMANDA 2021-02 Yes [id number] 1{tbl} Take 1 U nivers 50-200-25 2-02 tablet by ity o f [place] tablet [place] morning. [place] AMANDA 2021-02 Yes [id number] 1{tbl} Take 1 U nivers 50-200-25 2-02 tablet by ity o f mg tablet [place] morning. [place] AMANDA 2021-02 Yes [id number] 1{tbl} Take 1 U nivers 50-200-25 2-02 tablet by ity o f mg tablet [place] morning. [place] doxycycline 2021-0 Yes [id number] 1 po BID x Univers hyclate 100 06-20 [id number] 28 days ity of mg capsule 00:00: [facility] doxycycline 2-0 Yes [id number] 1 po BID x Univers hyclate 100 06-20 [id number] 28 days ity of mg capsule 00:00: [facility] doxycycline 2022-0 Yes [id number] 1 po BID x Univers hyclate 100 06-20 [id number] 28 days ity of mg capsule 00:00: [facility] doxycycline 2-0 Yes [id number] 1 po BID x Univers hyclate 100 06-20 [id number] 28 days ity of mg capsule 00:00: [facility] doxycycline 2-0 Yes [id number] 1 po BID x Univers hyclate 100 06-20 [id number] 28 days ity of mg capsule 00:00: [place] 00 [facility] Branch doxycycline 2021-0 Yes [id number] 1 po BID x Univers hyclate 100 06-20 28 days ity of mg capsule 00:00: [place] [facility] doxycycline 2021-0 2021- No [id number] 1 po BID x Univers hyclate 100 06-20 28 days ity of mg capsule 00:00: 00:00 [place] 00 :00 Medical Branch doxycycline 2021-0 2021- No [id number] 1 po BID x Univers hyclate 100 06-20 28 days ity of mg capsule 00:00: 00:00 [place] 00 :00 Medical Branch BIKTARVY 2021-0 Yes [id number] TAKE ONE U nivers 50-200-25 5-04 TABLET BY ity o f mg tablet 00:00: [facility] DAILY Medical Branch BIKTARVY 2021-0 Yes [id number] TAKE ONE U nivers 50-200-25 5-04 TABLET BY ity o f mg tablet 00:00: [facility] DAILY Medical Branch BIKTARVY 2021-0 Yes [id number] TAKE ONE U nivers 50-200-25 5-04 TABLET BY ity o f mg tablet 00:00: [facility] DAILY Medical Branch BIKTARVY 2021-0 Yes [id number] TAKE ONE U nivers 50-200-25 5-04 TABLET BY ity o f mg tablet 00:00: [facility] DAILY Medical Branch BIKTARVY 2021-0 Yes [id number] TAKE ONE U nivers 50-200-25 5-04 TABLET BY ity o f mg tablet 00:00: [facility] DAILY Medical Branch BIKTARVY 2021-0 Yes [id number] TAKE ONE U nivers 50-200-25 5-04 TABLET BY ity o f mg tablet 00:00: [facility] DAILY Medical Branch BIKTARVY 2021-0 Yes [id number] TAKE ONE U nivers 50-200-25 5-04 TABLET BY ity o f mg tablet 00:00: [facility] DAILY Medical Branch BIKTARVY 2021-0 Yes [id number] TAKE ONE U nivers 50-200-25 5-04 TABLET BY ity o f mg tablet 00:00: [facility] DAILY Medical Branch BIKTARVY 2022-0 Yes [id number] TAKE ONE U nivers 50-200-25 5-04 TABLET BY ity o f mg tablet 00:00: MOUTH [place] 00 DAILY Medical Branch BIKTARVY Yes [id number] TAKE ONE U nivers 50-200-25 5-04 TABLET BY ity o f mg tablet 00:00: MOUTH [place] 00 DAILY Medical Branch BIKTARVY 0 2021- No [id number] TAKE ONE Univers 50-200-25 5-04 12-02 TABLET BY ity of mg tablet 00:00: 00:00 MOUTH [place] 00 :00 DAILY Medical Branch BIKTARVY 0 2021- No [id number] TAKE ONE Univers 50-200-25 5-04 12-02 TABLET BY ity of mg tablet 00:00: 00:00 MOUTH [place] 00 :00 DAILY Medical Branch BIKTARVY 2020-02- No [id number] TAKE ONE Univers 50-200-25 2-17 05-04 TABLET BY ity of mg tablet 00:00: 00:00 MOUTH [place] 00 :00 DAILY Medical Branch bictegrav-e 2020- No [id number] TAKE ONE Univers mtricit-ten 6-21 12-17 TABLET BY it y of ofov ala 00:00: 00:00 MOUTH [place] 50-200-25 00 :00 DAILY Medical mg tablet [place] Immunizations Ordered Filled Immunization Date Status Comments [facility] e Immunization Name Name SARS-COV-2 COVID-19 2022-01-16 Completed Unive rsity of AJ-SUCROSE 00:00:00 [place] Medica l VACCINE 12 YRS+, Branch BIVALENT 0.3ML, IM, (PFIZER LIRA TOP BOOSTER) SARS-COV-2 COVID-19 2022-01-16 Completed Unive rsity of AJ-SUCROSE 00:00:00 [place] [facility]ica l VACCINE 12 YRS+, Branch BIVALENT 0.3ML, IM, (PFIZER LIRA TOP BOOSTER) SARS-COV-2 COVID-19 2022-01-16 Completed Unive rsity of AJ-SUCROSE 00:00:00 [place] [facility]ica l VACCINE 12 YRS+, Branch BIVALENT 0.3ML, IM, (PFIZER LIRA TOP BOOSTER) SARS-COV-2 COVID-19 2022-01-16 Completed Unive rsity of AJ-SUCROSE 00:00:00 [place] [facility]ica l VACCINE 12 YRS+, Branch BIVALENT 0.3ML, IM, (PFIZER LIRA TOP BOOSTER) SARS-COV-2 COVID-19 2022-01-16 Completed Unive rsity of AJ-SUCROSE 00:00:00 [place] [facility]ica l VACCINE 12 YRS+, Branch BIVALENT 0.3ML, IM, (PFIZER LIRA TOP BOOSTER) SARS-COV-2 COVID-19 2022-01-16 Completed Unive rsity of AJ-SUCROSE 00:00:00 [place] [facility]ica l VACCINE 12 YRS+, Branch BIVALENT 0.3ML, IM, (PFIZER LIRA TOP BOOSTER) SARS-COV-2 COVID-19 2022-01-16 Completed Unive rsity of AJ-SUCROSE 00:00:00 [place] [facility]ica l VACCINE 12 YRS+, Branch BIVALENT 0.3ML, IM, (PFIZER LIRA TOP BOOSTER) SARS-COV-2 COVID-19 2022-01-16 Completed Unive rsity of AJ-SUCROSE 00:00:00 [place] [facility]ica l VACCINE 12 YRS+, Branch BIVALENT 0.3ML, IM, (PFIZER LIRA TOP BOOSTER) SARS-COV-2 COVID-19 2022-01-16 Completed Unive rsity of AJ-SUCROSE 00:00:00 [place] Medica l VACCINE 12 YRS+, Branch BIVALENT 0.3ML, IM, (PFIZER LIRA TOP) SARS-COV-2 COVID-19 2022-01-16 Completed Unive rsity of AJ-SUCROSE 00:00:00 [place] Medica l VACCINE 12 YRS+, Branch BIVALENT 0.3ML, IM, (PFIZER LIRA TOP) SARS-COV-2 COVID-19 2022-01-16 Completed Unive rsity of AJ-SUCROSE 00:00:00 [place] [facility]ica l VACCINE 12 YRS+, Branch BIVALENT 0.3ML, IM, (PFIZER LIRA TOP) SARS-COV-2 COVID-19 2021-09-26 Completed Unive rsity of PFIZER AJ-SUCROSE 00:00:00 [place] [facility] VACCINE (LIRA TOP) Branch SARS-COV-2 COVID-19 2021-09-26 Completed Unive rsity of PFIZER AJ-SUCROSE 00:00:00 [place] [facility] VACCINE (LIRA TOP) Branch SARS-COV-2 COVID-19 2021-09-26 Completed Unive rsity of PFIZER AJ-SUCROSE 00:00:00 [place] [facility] VACCINE (LIRA TOP) Branch SARS-COV-2 COVID-19 2021-09-26 Completed Unive rsity of PFIZER AJ-SUCROSE 00:00:00 [place] [facility] VACCINE (LIRA TOP) Branch SARS-COV-2 COVID-19 2021-09-26 Completed Unive rsity of PFIZER AJ-SUCROSE 00:00:00 [place] [facility] VACCINE (LIRA TOP) Branch SARS-COV-2 COVID-19 2021-09-26 Completed Unive rsity of PFIZER AJ-SUCROSE 00:00:00 [place] [facility] VACCINE (LIRA TOP) Branch SARS-COV-2 COVID-19 2021-09-26 Completed Unive rsity of PFIZER AJ-SUCROSE 00:00:00 [place] [facility] VACCINE (LIRA TOP) Branch SARS-COV-2 COVID-19 2021-09-26 Completed Unive rsity of PFIZER AJ-SUCROSE 00:00:00 [place] [facility] VACCINE (LIRA TOP) Branch SARS-COV-2 COVID-19 2021-09-26 Completed Unive rsity of PFIZER AJ-SUCROSE 00:00:00 [place] [facility] VACCINE (LIRA TOP) Branch SARS-COV-2 COVID-19 2021-09-26 Completed Unive rsity of PFIZER AJ-SUCROSE 00:00:00 [place] [facility] VACCINE (LIRA TOP) Branch SARS-COV-2 COVID-19 2021-09-26 Completed Unive rsity of PFIZER AJ-SUCROSE 00:00:00 [place] [facility] VACCINE (LIRA TOP) Branch SARS-COV-2 COVID-19 2021-09-26 Completed Unive rsity of PFIZER AJ-SUCROSE 00:00:00 [place] [facility] VACCINE (LIRA TOP) Branch SARS-COV-2 COVID-19 2021-09-26 Completed Unive rsity of PFIZER AJ-SUCROSE 00:00:00 [place] [facility] VACCINE (LIRA TOP) Branch SARS-COV-2 COVID-19 2021-09-26 Completed Unive rsity of PFIZER AJ-SUCROSE 00:00:00 [place] [facility] VACCINE (LIRA TOP) Branch SARS-COV-2 COVID-19 2021-09-26 Completed Unive rsity of PFIZER AJ-SUCROSE 00:00:00 [place] [facility] VACCINE (LIRA TOP) Branch SARS-COV-2 COVID-19 2021-09-26 Completed Unive rsity of PFIZER AJ-SUCROSE 00:00:00 [place] [facility] VACCINE (LIRA TOP) Branch SARS-COV-2 COVID-19 2021-09-26 Completed Unive rsity of PFIZER AJ-SUCROSE 00:00:00 [place] [facility] VACCINE (LIRA TOP) Branch SARS-COV-2 COVID-19 2021-09-26 Completed Unive rsity of PFIZER AJ-SUCROSE 00:00:00 [place] [facility] VACCINE (LIRA TOP) Branch SARS-COV-2 COVID-19 2020-12-20 Completed Unive rsity of PFIZER VACCINE 00:00:00 [facility] Influenza Virus 2020-12-20 Completed Universit y of Vaccine Quad IM, 00:00:00 [place] Me dical Preserv and ABX Branch Free 6 MO-64 YRS SARS-COV-2 COVID-19 2020-12-20 Completed Unive rsity of PFIZER VACCINE 00:00:00 [facility] Influenza Virus 2020-12-20 Completed Universit y of Vaccine Quad IM, 00:00:00 [place] Me dical Preserv and ABX Branch Free 6 MO-64 YRS SARS-COV-2 COVID-19 2020-12-20 Completed Unive rsity of PFIZER VACCINE 00:00:00 [facility] Influenza Virus 2020-12-20 Completed Universit y of Vaccine Quad IM, 00:00:00 [place] Me dical Preserv and ABX Branch Free 6 MO-64 YRS SARS-COV-2 COVID-19 2020-12-20 Completed Unive rsity of PFIZER VACCINE 00:00:00 [facility] Influenza Virus 2020-12-20 Completed Universit y of Vaccine Quad IM, 00:00:00 [place] Me dical Preserv and ABX Branch Free 6 MO-64 YRS SARS-COV-2 COVID-19 2020-12-20 Completed Unive rsity of PFIZER VACCINE 00:00:00 [facility] Influenza Virus 2020-12-20 Completed Universit y of Vaccine Quad IM, 00:00:00 [place] Me dical Preserv and ABX Branch Free 6 MO-64 YRS SARS-COV-2 COVID-19 2020-12-20 Completed Unive rsity of PFIZER VACCINE 00:00:00 [facility] Influenza Virus 2020-12-20 Completed Universit y of Vaccine Quad IM, 00:00:00 [place] Me dical Preserv and ABX Branch Free 6 MO-64 YRS SARS-COV-2 COVID-19 2020-12-20 Completed Unive rsity of PFIZER VACCINE 00:00:00 [facility] Influenza Virus 2020-12-20 Completed Universit y of Vaccine Quad IM, 00:00:00 [place] Ms dical Preserv and ABX Branch Free 6 MO-64 YRS SARS-COV-2 COVID-19 2020-12-20 Completed Unive rsity of PFIZER VACCINE 00:00:00 [facility] Influenza Virus 2020-12-20 Completed Universit y of Vaccine Quad IM, 00:00:00 [facility] dical Preserv and ABX Branch Free 6 MO-64 YRS SARS-COV-2 COVID-19 2020-12-20 Completed Unive rsity of PFIZER VACCINE 00:00:00 [facility] Influenza Virus 2020-12-20 Completed Universit y of Vaccine Quad IM, 00:00:00 [facility] dical Preserv and ABX Branch Free 6 MO-64 YRS SARS-COV-2 COVID-19 2020-12-20 Completed Unive rsity of PFIZER VACCINE 00:00:00 [facility] Influenza Virus 2020-12-20 Completed Universit y of Vaccine Quad IM, 00:00:00 [facility] dical Preserv and ABX Branch Free 6 MO-64 YRS SARS-COV-2 COVID-19 2020-12-20 Completed Unive rsity of PFIZER VACCINE 00:00:00 [facility] Influenza Virus 2020-12-20 Completed Universit y of Vaccine Quad IM, 00:00:00 [facility] dical Preserv and ABX Branch Free 6 MO-64 YRS SARS-COV-2 COVID-19 2020-12-20 Completed Unive rsity of PFIZER VACCINE 00:00:00 [facility] Influenza Virus 2020-12-20 Completed Universit y of Vaccine Quad IM, 00:00:00 [facility] dical Preserv and ABX Branch Free 6 MO-64 YRS SARS-COV-2 COVID-19 2020-12-20 Completed Unive rsity of PFIZER VACCINE 00:00:00 [facility] Influenza Virus 2020-12-20 Completed Universit y of Vaccine Quad IM, 00:00:00 [facility] dical Preserv and ABX Branch Free 6 MO-64 YRS SARS-COV-2 COVID-19 2020-12-20 Completed Unive rsity of PFIZER VACCINE 00:00:00 [facility] Influenza Virus 2020-12-20 Completed Universit y of Vaccine Quad IM, 00:00:00 [place] Me dical Preserv and ABX Branch Free 6 MO-64 YRS SARS-COV-2 COVID-19 2020-12-20 Completed Unive rsity of PFIZER VACCINE 00:00:00 [facility] Influenza Virus 2020-12-20 Completed Universit y of Vaccine Quad IM, 00:00:00 [place] Me dical Preserv and ABX Branch Free 6 MO-64 YRS SARS-COV-2 COVID-19 2020-12-20 Completed Unive rsity of PFIZER VACCINE 00:00:00 [facility] Influenza Virus 2020-12-20 Completed Universit y of Vaccine Quad IM, 00:00:00 [facility] dical Preserv and ABX Branch Free 6 MO-64 YRS SARS-COV-2 COVID-19 2020-12-20 Completed Unive rsity of PFIZER VACCINE 00:00:00 [facility] Influenza Virus 2020-12-20 Completed Universit y of Vaccine Quad IM, 00:00:00 [place] Me dical Preserv and ABX Branch Free 6 MO-64 YRS SARS-COV-2 COVID-19 2020-12-20 Completed Unive rsity of PFIZER VACCINE 00:00:00 [facility] Influenza Virus 2020-12-20 Completed Universit y of Vaccine Quad IM, 00:00:00 [place] Me dical Preserv and ABX Branch Free 6 MO-64 YRS SARS-COV-2 COVID-19 2020-12-20 Completed Unive rsity of PFIZER VACCINE 00:00:00 [facility] Influenza Virus 2020-12-20 Completed Universit y of Vaccine Quad IM, 00:00:00 [place] Me dical Preserv and ABX Branch Free 6 MO-64 YRS SARS-COV-2 COVID-19 2020-12-20 Completed Unive rsity of PFIZER VACCINE 00:00:00 [facility] Influenza Virus 2020-12-20 Completed Universit y of Vaccine Quad IM, 00:00:00 [place] Me dical Preserv and ABX Branch Free 6 MO-64 YRS SARS-COV-2 COVID-19 2020-12-20 Completed Unive rsity of PFIZER VACCINE 00:00:00 [facility] Influenza Virus 2020-12-20 Completed Universit y of Vaccine Quad IM, 00:00:00 [facility] dical Preserv and ABX Branch Free 6 MO-64 YRS SARS-COV-2 COVID-19 2020-12-20 Completed Unive rsity of PFIZER VACCINE 00:00:00 [facility] Influenza Virus 2020-12-20 Completed Universit y of Vaccine Quad IM, 00:00:00 [facility] dical Preserv and ABX Branch Free 6 MO-64 YRS Influenza Virus 2019-12-20 Completed Universit y of Vaccine Quad .5 mL 00:00:00 [place] [facility] IM 6+ MO Branch Influenza Virus 2019-12-20 Completed Universit y of Vaccine Quad .5 mL 00:00:00 [place] [facility] IM 6+ MO Branch Influenza Virus 2019-12-20 Completed Universit y of Vaccine Quad .5 mL 00:00:00 [place] [facility] IM 6+ MO Branch Influenza Virus 2019-12-20 Completed Universit y of Vaccine Quad .5 mL 00:00:00 [place] [facility] IM 6+ MO Branch Influenza Virus 2019-12-20 Completed Universit y of Vaccine Quad .5 mL 00:00:00 [place] [facility] IM 6+ MO Branch Influenza Virus 2019-12-20 Completed Universit y of Vaccine Quad .5 mL 00:00:00 [place] [facility] IM 6+ MO Branch Influenza Virus 2019-12-20 Completed Universit y of Vaccine Quad .5 mL 00:00:00 [place] [facility] IM 6+ MO Branch Influenza Virus 2019-12-20 Completed Universit y of Vaccine Quad .5 mL 00:00:00 [place] [facility] IM 6+ MO Branch Influenza Virus 2019-12-20 Completed Universit y of Vaccine Quad .5 mL 00:00:00 [place] [facility] IM 6+ MO Branch Influenza Virus 2019-12-20 Completed Universit y of Vaccine Quad .5 mL 00:00:00 [place] [facility] IM 6+ MO Branch Influenza Virus 2019-12-20 Completed Universit y of Vaccine Quad .5 mL 00:00:00 [place] [facility] IM 6+ MO Branch Influenza Virus 2019-12-20 Completed Universit y of Vaccine Quad .5 mL 00:00:00 [place] [facility] IM 6+ MO Branch Influenza Virus 2019-12-20 Completed Universit y of Vaccine Quad .5 mL 00:00:00 [place] [facility] IM 6+ MO Branch Influenza Virus 2019-12-20 Completed Universit y of Vaccine Quad .5 mL 00:00:00 [place] [facility] IM 6+ MO Branch Influenza Virus 2019-12-20 Completed Universit y of Vaccine Quad .5 mL 00:00:00 [place] [facility] IM 6+ MO Branch Influenza Virus 2019-12-20 Completed Universit y of Vaccine Quad .5 mL 00:00:00 [place] [facility] IM 6+ MO Branch Influenza Virus 2019-12-20 Completed Universit y of Vaccine Quad .5 mL 00:00:00 [place] [facility] IM 6+ MO Branch Influenza Virus 2019-12-20 Completed Universit y of Vaccine Quad .5 mL 00:00:00 [place] [facility] IM 6+ MO Branch Influenza Virus 2019-12-20 Completed Universit y of Vaccine Quad .5 mL 00:00:00 [place] [facility] IM 6+ MO Branch Influenza Virus 2019-12-20 Completed Universit y of Vaccine Quad .5 mL 00:00:00 [place] [facility] IM 6+ MO Branch Influenza Virus 2019-12-20 Completed Universit y of Vaccine Quad .5 mL 00:00:00 [place] [facility] IM 6+ MO Branch Influenza Virus 2019-12-20 Completed Universit y of Vaccine Quad .5 mL 00:00:00 [place] [facility] 6+ MO Branch Hepatitis A Adult 2019-01-03 Completed Univers ity of 00:00:00 [facility] 2019-01-03 Completed University of 00:00:00 [facility] Hepatitis A Adult 2019-01-03 Completed Univers ity of 00:00:00 [facility] 2019-01-03 Completed University of 00:00:00 [facility] Hepatitis A Adult 2019-01-03 Completed Univers ity of 00:00:00 [facility] HPV9 2019-01-03 Completed University of 00:00:00 [facility] Hepatitis A Adult 2019-01-03 Completed Univers ity of 00:00:00 [facility] HPV9 2019-01-03 Completed University of 00:00:00 [facility] Hepatitis A Adult 2019-01-03 Completed Univers ity of 00:00:00 [facility] 2019-01-03 Completed University of 00:00:00 [facility] Hepatitis A Adult 2019-01-03 Completed Univers ity of 00:00:00 [facility] 2019-01-03 Completed University of 00:00:00 [facility] Hepatitis A Adult 2019-01-03 Completed Univers ity of 00:00:00 [facility] 2019-01-03 Completed University of 00:00:00 [facility] Hepatitis A Adult 2019-01-03 Completed Univers ity of 00:00:00 [facility] 2019-01-03 Completed University of 00:00:00 [facility] Hepatitis A Adult 2019-01-03 Completed Univers ity of 00:00:00 [facility] 2019-01-03 Completed University of 00:00:00 [facility] Hepatitis A Adult 2019-01-03 Completed Univers ity of 00:00:00 [facility] 2019-01-03 Completed University of 00:00:00 [facility] Hepatitis A Adult 2019-01-03 Completed Univers ity of 00:00:00 [facility] 2019-01-03 Completed University of 00:00:00 [facility] Hepatitis A Adult 2019-01-03 Completed Univers ity of 00:00:00 [facility] 2019-01-03 Completed University of 00:00:00 [facility] Hepatitis A Adult 2019-01-03 Completed Univers ity of 00:00:00 [facility] 2019-01-03 Completed University of 00:00:00 [facility] Hepatitis A Adult 2019-01-03 Completed Univers ity of 00:00:00 [facility] 2019-01-03 Completed University of 00:00:00 [facility] Hepatitis A Adult 2019-01-03 Completed Univers ity of 00:00:00 [facility] 2019-01-03 Completed University of 00:00:00 [facility] Hepatitis A Adult 2019-01-03 Completed Univers ity of 00:00:00 [facility] 2019-01-03 Completed University of 00:00:00 [facility] Hepatitis A Adult 2019-01-03 Completed Univers ity of 00:00:00 [facility] 2019-01-03 Completed University of 00:00:00 [facility] Hepatitis A Adult 2019-01-03 Completed Univers ity of 00:00:00 [facility]9 2019-01-03 Completed University of 00:00:00 [facility] Hepatitis A Adult 2019-01-03 Completed Univers ity of 00:00:00 [facility]9 2019-01-03 Completed University of 00:00:00 [facility] Hepatitis A Adult 2019-01-03 Completed Univers ity of 00:00:00 [facility] HPV9 2019-01-03 Completed University of 00:00:00 [facility] Hepatitis A Adult 2019-01-03 Completed Univers ity of 00:00:00 [facility] HPV9 2019-01-03 Completed University of 00:00:00 [facility] Hepatitis A Adult 2019-01-03 Completed Univers ity of 00:00:00 [facility] HPV9 2019-01-03 Completed University of 00:00:00 [facility] Influenza Virus 2018-11-18 Completed Universit y of Vaccine Quad .5 mL 00:00:00 [facility] 6+ [facility] Influenza Virus 2018-11-18 Completed Universit y of Vaccine Quad .5 mL 00:00:00 [facility] 6+ MO [facility] Influenza Virus 2018-11-18 Completed Universit y of Vaccine Quad .5 mL 00:00:00 [facility] 6+ MO [facility] Influenza Virus 2018-11-18 Completed Universit y of Vaccine Quad .5 mL 00:00:00 [facility] 6+ MO [facility] Influenza Virus 2018-11-18 Completed Universit y of Vaccine Quad .5 mL 00:00:00 [facility] 6+ MO Branch Influenza Virus 2018-11-18 Completed Universit y of Vaccine Quad .5 mL 00:00:00 [facility] 6+ MO Branch Influenza Virus 2018-11-18 Completed Universit y of Vaccine Quad .5 mL 00:00:00 [facility] 6+ MO Branch Influenza Virus 2018-11-18 Completed Universit y of Vaccine Quad .5 mL 00:00:00 [facility] 6+ MO [facility] Influenza Virus 2018-11-18 Completed Universit y of Vaccine Quad .5 mL 00:00:00 [facility] 6+ MO Branch Influenza Virus 2018-11-18 Completed Universit y of Vaccine Quad .5 mL 00:00:00 [facility] 6+ MO Branch Influenza Virus 2018-11-18 Completed Universit y of Vaccine Quad .5 mL 00:00:00 [facility] 6+ MO Branch Influenza Virus 2018-11-18 Completed Universit y of Vaccine Quad .5 mL 00:00:00 [facility] 6+ MO Branch Influenza Virus 2018-11-18 Completed Universit y of Vaccine Quad .5 mL 00:00:00 [facility] 6+ MO Branch Influenza Virus 2018-11-18 Completed Universit y of Vaccine Quad .5 mL 00:00:00 [facility] 6+ MO [facility] Influenza Virus 2018-11-18 Completed Universit y of Vaccine Quad .5 mL 00:00:00 [facility] 6+ MO Branch Influenza Virus 2018-11-18 Completed Universit y of Vaccine Quad .5 mL 00:00:00 [facility] 6+ MO [facility] Influenza Virus 2018-11-18 Completed Universit y of Vaccine Quad .5 mL 00:00:00 [facility] 6+ MO Branch Influenza Virus 2018-11-18 Completed Universit y of Vaccine Quad .5 mL 00:00:00 [facility] 6+ MO [facility] Influenza Virus 2018-11-18 Completed Universit y of Vaccine Quad .5 mL 00:00:00 [facility] 6+ MO [facility] Influenza Virus 2018-11-18 Completed Universit y of Vaccine Quad .5 mL 00:00:00 [facility] 6+ MO [facility] Influenza Virus 2018-11-18 Completed Universit y of Vaccine Quad .5 mL 00:00:00 [facility] 6+ MO [facility] Influenza Virus 2018-11-18 Completed Universit y of Vaccine Quad .5 mL 00:00:00 [facility] 6+ MO Branch Pneumococcal 2018-11-04 Completed [...] [place] [facility] PPSV23 (PNEUMOVAX) Branch Pneumococcal 13 2018-06-22 Completed Universit y of Conjugate, PCV13 00:00:00 [facility] dical (Prevnar 13) Branch Hepatitis A Adult 2018-06-22 Completed Univers ity of 00:00:00 [facility] Branch Pneumococcal 13 2018-06-22 Completed Universit y of Conjugate, PCV13 00:00:00 [facility] dical (Prevnar 13) Branch Hepatitis A Adult 2018-06-22 Completed Univers ity of 00:00:00 [facility] Branch Pneumococcal 13 2018-06-22 Completed Universit y of Conjugate, PCV13 00:00:00 [place] [facility] (Prevnar 13) Branch Hepatitis A Adult 2018-06-22 Completed Univers ity of 00:00:00 [facility] Branch Pneumococcal 13 2018-06-22 Completed Universit y of Conjugate, PCV13 00:00:00 [place] [facility] (Prevnar 13) Branch Hepatitis A Adult 2018-06-22 Completed Univers ity of 00:00:00 [facility] Branch Pneumococcal 13 2018-06-22 Completed Universit y of Conjugate, PCV13 00:00:00 [place] [facility] (Prevnar 13) Branch Hepatitis A Adult 2018-06-22 Completed Univers ity of 00:00:00 [facility] Branch Pneumococcal 13 2018-06-22 Completed Universit y of Conjugate, PCV13 00:00:00 [facility] dical (Prevnar 13) Branch Hepatitis A Adult 2018-06-22 Completed Univers ity of 00:00:00 [facility] Branch Pneumococcal 13 2018-06-22 Completed Universit y of Conjugate, PCV13 00:00:00 [facility] dical (Prevnar 13) Branch Hepatitis A Adult 2018-06-22 Completed Univers ity of 00:00:00 [facility] Branch Pneumococcal 13 2018-06-22 Completed Universit y of Conjugate, PCV13 00:00:00 [facility] dical (Prevnar 13) Branch Hepatitis A Adult 2018-06-22 Completed Univers ity of 00:00:00 [facility] Branch Pneumococcal 13 2018-06-22 Completed Universit y of Conjugate, PCV13 00:00:00 [facility] dical (Prevnar 13) Branch Hepatitis A Adult 2018-06-22 Completed Univers ity of 00:00:00 [facility] Branch Pneumococcal 13 2018-06-22 Completed Universit y of Conjugate, PCV13 00:00:00 [place] [facility] (Prevnar 13) Branch Hepatitis A Adult 2018-06-22 Completed Univers ity of 00:00:00 [facility] Branch Pneumococcal 13 2018-06-22 Completed Universit y of Conjugate, PCV13 00:00:00 [facility] dical (Prevnar 13) Branch Hepatitis A Adult 2018-06-22 Completed Univers ity of 00:00:00 [facility] Branch Pneumococcal 13 2018-06-22 Completed Universit y of Conjugate, PCV13 00:00:00 [place] [facility] (Prevnar 13) Branch Hepatitis A Adult 2018-06-22 Completed Univers ity of 00:00:00 [facility] Branch Pneumococcal 13 2018-06-22 Completed Universit y of Conjugate, PCV13 00:00:00 [place] [facility] (Prevnar 13) Branch Hepatitis A Adult 2018-06-22 Completed Univers ity of 00:00:00 [facility] Branch Pneumococcal 13 2018-06-22 Completed Universit y of Conjugate, PCV13 00:00:00 [place] [facility] (Prevnar 13) Branch Hepatitis A Adult 2018-06-22 Completed Univers ity of 00:00:00 [facility] Branch Pneumococcal 13 2018-06-22 Completed Universit y of Conjugate, PCV13 00:00:00 [place] [facility] (Prevnar 13) Branch Hepatitis A Adult 2018-06-22 Completed Univers ity of 00:00:00 [facility] Branch Pneumococcal 13 2018-06-22 Completed Universit y of Conjugate, PCV13 00:00:00 [place] [facility] (Prevnar 13) Branch Hepatitis A Adult 2018-06-22 Completed Univers ity of 00:00:00 [facility] Branch Pneumococcal 13 2018-06-22 Completed Universit y of Conjugate, PCV13 00:00:00 [facility] dical (Prevnar 13) Branch Hepatitis A Adult 2018-06-22 Completed Univers ity of 00:00:00 [facility] Branch Pneumococcal 13 2018-06-22 Completed Universit y of Conjugate, PCV13 00:00:00 [facility] dical (Prevnar 13) Branch Hepatitis A Adult 2018-06-22 Completed Univers ity of 00:00:00 [facility] Branch Pneumococcal 13 2018-06-22 Completed Universit y of Conjugate, PCV13 00:00:00 [facility] dical (Prevnar 13) Branch Hepatitis A Adult 2018-06-22 Completed Univers ity of 00:00:00 [facility] Branch Pneumococcal 13 2018-06-22 Completed Universit y of Conjugate, PCV13 00:00:00 [place] [facility] (Prevnar 13) Branch Hepatitis A Adult 2018-06-22 Completed Univers ity of 00:00:00 [facility] Branch Pneumococcal 13 2018-06-22 Completed Universit y of Conjugate, PCV13 00:00:00 [facility] dical (Prevnar 13) Branch Hepatitis A Adult 2018-06-22 Completed Univers ity of 00:00:00 [facility] Pneumococcal 13 2018-06-22 Completed Universit y of Conjugate, PCV13 00:00:00 [facility] (Prevnar 13) Branch Hepatitis A Adult 2018-06-22 Completed Univers ity of 00:00:00 [facility] Influenza Virus 2018-03-08 Completed Universit y of Vaccine Quad .5 mL 00:00:00 [facility] IM 6+ MO Branch Influenza Virus 2018-03-08 Completed Universit y of Vaccine Quad .5 mL 00:00:00 [facility] IM 6+ MO Branch Influenza Virus 2018-03-08 Completed Universit y of Vaccine Quad .5 mL 00:00:00 [facility] IM 6+ MO Branch Influenza Virus 2018-03-08 Completed Universit y of Vaccine Quad .5 mL 00:00:00 [facility] IM 6+ MO Branch Influenza Virus 2018-03-08 Completed Universit y of Vaccine Quad .5 mL 00:00:00 [facility] 6+ MO Branch Influenza Virus 2018-03-08 Completed Universit y of Vaccine Quad .5 mL 00:00:00 [facility] IM 6+ MO Branch Influenza Virus 2018-03-08 Completed Universit y of Vaccine Quad .5 mL 00:00:00 [facility] 6+ MO Branch Influenza Virus 2018-03-08 Completed Universit y of Vaccine Quad .5 mL 00:00:00 [facility] IM 6+ MO Branch Influenza Virus 2018-03-08 Completed Universit y of Vaccine Quad .5 mL 00:00:00 [facility] 6+ MO Branch Influenza Virus 2018-03-08 Completed Universit y of Vaccine Quad .5 mL 00:00:00 [facility] IM 6+ MO Branch Influenza Virus 2018-03-08 Completed Universit y of Vaccine Quad .5 mL 00:00:00 [facility] IM 6+ MO Branch Influenza Virus 2018-03-08 Completed Universit y of Vaccine Quad .5 mL 00:00:00 [facility] IM 6+ MO Branch Influenza Virus 2018-03-08 Completed Universit y of Vaccine Quad .5 mL 00:00:00 [facility] IM 6+ MO Branch Influenza Virus 2018-03-08 Completed Universit y of Vaccine Quad .5 mL 00:00:00 [facility] IM 6+ MO Branch Influenza Virus 2018-03-08 Completed Universit y of Vaccine Quad .5 mL 00:00:00 [facility] IM 6+ MO Branch Influenza Virus 2018-03-08 Completed Universit y of Vaccine Quad .5 mL 00:00:00 [facility] Influenza Virus 2018-03-08 Completed Universit y of Vaccine Quad .5 mL 00:00:00 [facility] 6[facility] MO [facility] Influenza Virus 2018-03-08 Completed Universit y of Vaccine Quad .5 mL 00:00:00 [facility] 6+ MO Branch Influenza Virus 2018-03-08 Completed Universit y of Vaccine Quad .5 mL 00:00:00 [facility] 6+ MO [facility] Influenza Virus 2018-03-08 Completed Universit y of Vaccine Quad .5 mL 00:00:00 [facility] 6+ MO Branch Influenza Virus 2018-03-08 Completed Universit y of Vaccine Quad .5 mL 00:00:00 [facility] 6+ MO [facility] Influenza Virus 2018-03-08 Completed Universit y of Vaccine Quad .5 mL 00:00:00 [facility] 6[facility] MO [facility] Vital Signs Vital Name Observation Time Observation Value Comments Source Systolic blood 2022-01-16 21:58:00 134 mm[Hg] Univer sity of pressure [facility] Diastolic blood 2022-01-16 21:58:00 86 mm[Hg] Unive rsity of pressure [facility] Heart rate 2022-01-16 21:58:00 68 /min Universi ty of [facility] Body temperature 2022-01-16 21:58:00 36.5 Paula [facility] Body height 2022-01-16 21:58:00 162.6 cm Universi ty [facility] Body weight 2022-01-16 21:58:00 86.546 kg Universi ty of [facility] BMI 2022-01-16 21:58:00 32.75 kg/m2 Universi ty of [facility] Systolic blood 2021-09-26 15:57:00 126 mm[Hg] Univer sity of pressure [facility] Branch Diastolic blood 2021-09-26 15:57:00 78 mm[Hg] Unive rsity of pressure [facility] Heart rate 2021-09-26 15:57:00 78 /min Universi ty of [facility] Respiratory rate 2021-09-26 15:53:00 18 /min Univ ersity of [facility] Body height 2021-09-26 15:53:00 162.6 cm Universi ty of [facility] Body weight 2021-09-26 15:53:00 89.812 kg Universi ty [facility] BMI 2021-09-26 15:53:00 33.99 kg/m2 Universi [facility] Oxygen saturation in 2021-09-26 15:53:00 98 /min [facility] Arterial blood by [facility] Pulse oximetry Branch Systolic blood 2021-06-20 15:26:00 138 mm[Hg] Univer sity of pressure [facility] Diastolic blood 2021-06-20 15:26:00 80 mm[Hg] Unive rsity of [facility] Heart rate 2021-06-20 15:26:00 81 /min Universi ty [facility] Body temperature 2021-06-20 15:25:00 37.06 Paula [facility] Respiratory rate 2021-06-20 15:25:00 16 /min [facility] Body height 2021-06-20 15:25:00 177.8 cm Universi [facility] Body weight 2021-06-20 15:25:00 89.948 kg Universi ty [facility] BMI 2021-06-20 15:25:00 28.45 kg/m2 [facility] Procedures Procedure Date / Time Performed Performing Clinician [facility] amparo SARS-COV-2 COVID-19 2022-01-16 22:18:51 Brittnee Edward [facility] AJ-SUCROSE VACCINE Medical [facility] 12 YRS+, BIVALENT 0.3ML, IM, (PFIZER LIRA TOP BOOSTER) SARS-COV-2 COVID-19 2021-09-26 20:37:08 Doctor Unassigned, [facility] [place] [facility] 12 Name Medical Branch YRS+,0.3ML,IM (PFIZER - LIRA TOP) Encounters Start End Encounter Admission Attending Care Care Encounter Source Date/Time Date/Time Type Type Clinicians Facility Department ID 2022-07-17 2022-07-17 Digital Media Strategist [facility] UNIVERSIT [id number] Univers 11:00:00 11:15:00 Visit Brittnee Edward [facility] [id number] ity of [facility] 4.2.7.2.686 Jericho lopez [id number] [facility] 316 Branch 2022-07-17 2022-07-17 Outpatient [facility] [id number] Univers 11:00:00 11:00:00 BRITTNEE choi [facility] 2022-07-17 2022-07-17 Case ANNAMARIA [facility] [id number] Univers 00:00:00 00:00:00 Management Jarek L Y HEALTH 350.1.13.10 [place]y [place] [id number] [address] 2022-07-17 2022-07-17 Case Benja, UNIVERSIT [id number] Univers 00:00:00 00:00:00 Management Zev L Y HEALTH 350.1.13.10 [place]y [place] [id number] [address] 2022-02-19 2022-02-19 Digital Media Strategist Lucius, Rajwinder Lab Main [facility] [id number] Univers 12:00:00 12:15:00 Visit [facility] [id number] [place]y [place] PROF[place] [id number] [facility] 2022-02-19 2022-02-19 Outpatient [facility] [id number] Univers 12:00:00 12:00:00 BRITTNEE choi [facility] 2022-02-10 2022-02-10 Allen Corrie, UNIVERSIT [id number] Univers 00:00:00 00:00:00 Management Nechelle Y HEALTH 350.1.13.10 ity [place] [id number] [address] 2022-01-30 2022-01-30 Patient ANTONIETA Edward [id number] Univers 00:00:00 00:00:00 Secure Msg [place] Y HEALTH 350.1.13.10 ity [place] [id number] [address] 2022-01-29 2022-01-29 Telephone [facility], [facility] [id number] [id number] Univers 00:00:00 00:00:00 [facility] 350.1.13.10 i ty of [place] [id number] [place] [address] [place] 2022-01-29 2022-01-29 Patient [facility], [facility] [id number] Univers 00:00:00 00:00:00 Secure Msg [facility] [id number] ity [place] [id number] [address] 2022-01-29 2022-01-29 Patient Doctor RACHEL [id number] Univers 00:00:00 00:00:00 Secure Msg Unassigned, TANESHA 350.1.13.10 ity of [facility] 4.2.7.2.686 Edgardo as [id number] [address] 2022-01-16 2022-01-16 Office [facility] [id number] Univers 15:30:00 16:00:00 Visit [facility] 350.1.13.10 i ty [place] [id number] [address] 2022-01-16 2022-01-16 Outpatient [facility] [id number] Univers 15:30:00 15:30:00 [facility] 2022-01-12 2022-01-12 Outpatient [facility] [id number] Univers 14:30:00 14:30:00 [facility] 2022-01-07 2022-01-07 Case Paty [facility] 1.2.840.114 [id number] Univers 00:00:00 00:00:00 Management [facility] 350.1.13.10 ity of [place] [id number] [address] 2021-12-31 2021-12-31 Case Gifty, UNIVERSIT 1.2.840.114 [id number] Univers 00:00:00 00:00:00 Management Erika L Y HEALTH 350.1.13.10 ity [place] [id number] [place] [address] Branch 2021-09-29 2021-09-29 Case Felix, UNIVERSIT 1.2.190.362 [id number] Univers 00:00:00 00:00:00 Management Holly L Y HEALTH 350.1.13.10 ity of [place] [id number] [place] [address] Branch 2021-09-26 2021-09-26 Imm/Inj Vaccine, Gal [facility] UNIVERSIT 1.2.840 .114 [id number] Univers 10:40:00 10:50:00 Visit Pancho Chin Aries Y HEALTH 350.1.13.10 ity of [place] [id number] [place] [address] Branch 2021-09-26 2021-09-26 Office [facility], [facility] [id number] Univers 10:00:00 10:30:00 Visit Brittnee HEALTH 350.1.13.10 i ty [place] [id number] [address] 2021-09-26 2021-09-26 Outpatient [facility] [id number] Univers 10:00:00 10:00:00 BRITTNEE ity [facility] 2021-09-26 2021-09-26 Case Husseinbettina, UNIVERSIT 1.2.279.136 [id number] Univers 00:00:00 00:00:00 Management Jarek L Y HEALTH 350.1.13.10 ity [place] [id number] [address] 2021-09-26 2021-09-26 Case Felix, UNIVERSIT 1.2.833.003 [id number] Univers 00:00:00 00:00:00 Management Holly L Y HEALTH 350.1.13.10 ity of [place] [id number] [place] [address] [place] 2021-09-25 2021-09-25 Allen Newman [facility] 1.2.840.114 [id number] Univers 00:00:00 00:00:00 Management Jenn L Y HEALTH 350.1.13.10 ity [place] [id number] [address] 2021-06-20 2021-06-20 Digital Media Strategist [facility] UNIVERSIT 1.2.840.114 [id number] Univers 11:45:00 12:00:00 Visit Brittnee Edward [facility] 350.1.13.10 ity [place] [id number] [address] 2021-06-20 2021-06-20 Outpatient [facility] [id number] Univers 11:45:00 11:45:00 [facility] 2021-06-20 2021-06-20 Outpatient [facility] [id number] Univers 10:00:00 11:27:48 [facility] 2021-06-20 2021-06-20 Office [facility] [id number] Univers 10:00:00 11:27:48 Visit [facility] 350.1.13.10 i ty of [place] [id number] [address] 2021-06-20 2021-06-20 Allen Solis [facility] 1.2.365.429 [id number] Univers 00:00:00 00:00:00 Management Jarek L Y HEALTH 350.1.13.10 ity [place] [id number] [address] 2021-06-18 2021-06-18 Charmaine Newman [facility] 1.2.840.114 [id number] Univers 00:00:00 00:00:00 Jenn L Y HEALTH 350.1.13.10 ity [place] [id number] [address] 2021-06-16 2021-06-16 Allen Newman, UNIVERSIT 1.2.840.114 [id number] Univers 00:00:00 00:00:00 Management Jenn L Y HEALTH 350.1.13.10 ity [place] [id number] [address] 2021-06-16 2021-06-16 Ephraim Lambert, [facility] 1.2.840.114 [id number] Univers 00:00:00 00:00:00 Zhanna A Y HEALTH 350.1.13.10 ity [place] [id number] [address] 2021-05-12 2021-05-12 Allen Felix, [facility] [id number] Univers 00:00:00 00:00:00 Management Holly L Y HEALTH 350.1.13.10 ity [place] [id number] [address] 2021-05-09 2021-05-09 Outpatient [facility] [id number] Univers 11:00:00 11:00:00 [facility] 2021-05-09 2021-05-09 Outpatient [facility] [id number] Univers 11:00:00 11:00:00 BRITTNEE [facility] 2021-05-09 2021-05-09 Allen Washington [facility] 1.2.683.512 [id number] Univers 00:00:00 00:00:00 Management Holly L Y HEALTH 350.1.13.10 ity [place] [id number] [address] 2021-05-02 2021-05-02 Allen Washington [facility] 1.2.550.354 [id number] Univers 00:00:00 00:00:00 Management Holly L Y HEALTH 350.1.13.10 ity [place] [id number] [address] 2021-02-11 2021-02-11 Case [place], UNIVERSIT 1.2.582.341 [id number] Univers 00:00:00 00:00:00 Management Holly L Y HEALTH 350.1.13.10 ity of [place] [id number] [address] 2021-02-03 2021-02-03 Case [place], UNIVERSIT 1.2.607.925 [id number] Univers 00:00:00 00:00:00 Management Holly L Y HEALTH 350.1.13.10 ity [place] [id number] [address] 2021-01-31 2021-01-31 [facility] 1.2.871.144 [id number] Univers 00:00:00 00:00:00 Brittnee Y HEALTH 350.1.13.10 i ty [place] [id number] [address] 2021-01-27 2021-01-27 Allen Felix, UNIVERSIT [id number] Univers 00:00:00 00:00:00 Management Holly L Y HEALTH 350.1.13.10 ity [place] [id number] [address] 2021-01-08 2021-01-08 [facility] [id number] [id number] Univers 00:00:00 00:00:00 Management Holly L Y HEALTH 350.1.13.10 ity [place] [id number] [address] 2021-01-08 2021-01-08 Allen Felix [facility] 1.2.939.924 [id number] Univers 00:00:00 00:00:00 Management Holly L Y HEALTH 350.1.13.10 ity [place] [id number] [address] 2021-01-03 2021-01-03 Case Corrie, UNIVERSIT 1.2.840.114 [id number] Univers 00:00:00 00:00:00 Management Netta Camara HEALTH 350.1.13.10 ity of [place] [id number] [place] [address] [place] 2021-01-01 2021-01-01 Case Corrie, UNIVERSIT 1.2.840.114 [id number] Univers 00:00:00 00:00:00 Management Netta Camara HEALTH 350.1.13.10 ity [place] [id number] [address] 2020-12-20 2020-12-20 Outpatient [facility] [id number] Univers 12:00:00 12:00:00 [facility] 2020-12-20 2020-12-20 Digital Media Strategist [facility] UNIVERSIT 1.2.840.114 [id number] Univers 11:37:21 11:41:21 Visit Brittnee Edward [facility] 350.1.13.10 it[place] [phone] [facility] [address] [place] 2020-12-20 2020-12-20 Imm/Inj Vaccine, Gal [facility] UNIVERSIT 1.2.840 .114 [id number] Univers 11:17:07 11:27:07 Visit Brittnee Edward [facility] 350.1.13.10 ity [place] [id number] [place] [address] [place] 2020-12-20 2020-12-20 Office [facility] UNIVERSIT 1.2.645.833 [id number] Univers 10:00:00 10:30:00 Visit Brittnee [facility] 350.1.13.10 i ty [place] [phone] [place] [address] [place] 2020-12-20 2020-12-20 Outpatient R [facility] [id number] Univers 10:00:00 10:00:00 [facility] 2020-12-19 2020-12-19 Case Pranav Ramirez, UNIVERSIT 1.2.840.114 [id number] Univers 00:00:00 00:00:00 Management Erika R [facility] 350.1.13.10 [place] [id number] [address] 2020-12-16 2020-12-16 Case Paty, UNIVERSIT 1.2.840.114 [id number] Univers 00:00:00 00:00:00 Management Jenn L Y HEALTH 350.1.13.10 [place] [id number] [address] 2020-11-07 2020-11-07 [place], UNIVERSIT 1.2.478.318 [id number] Univers 00:00:00 00:00:00 Management Holly L Y HEALTH 350.1.13.10 [place] [phone] [address] 2020-10-11 2020-10-11 Case Felix, UNIVERSIT 1.2.417.068 [id number] Univers 00:00:00 00:00:00 Management Holly L Y HEALTH 350.1.13.10 [place] [id number] [address] 2020-10-09 2020-10-09 Case Gifty, [facility] 1.2.840.114 [id number] Univers 00:00:00 00:00:00 Management Erika L Y HEALTH 350.1.13.10 [place] [id number] [address] 2020-09-18 2020-09-18 Case Gifty [facility] 1.2.840.114 [id number] Univers 00:00:00 00:00:00 Management Erika L Y HEALTH 350.1.13.10 it[place] [id number] [address] 2020-08-02 2020-08-02 Refill Wagner [facility] 1.2.596.951 [id number] Univers 00:00:00 00:00:00 Brittnee Y HEALTH 350.1.13.10 i ty [place] [phone] [place] [address] [place] 2020-06-19 2020-06-19 Digital Media Strategist [facility] UNIVERSIT 1.2.840.114 [id number] Univers 13:20:49 13:35:49 Visit Brittnee Edward [facility] 350.1.13.10 ity [place] [id number] [facility] [address] 2020-06-19 2020-06-19 Office Wagner [facility] 1.2.426.747 [id number] Univers 11:09:42 11:39:42 Visit Brittnee Camara HEALTH 350.1.13.10 i ty [place] [id number] [address] 2020-06-19 2020-06-19 Outpatient R [facility] [id number] Univers 11:00:00 11:00:00 BRITTNEE ity [facility] 2020-06-17 2020-06-17 Allen [place] [facility] 1.2.726.591 [id number] Univers 00:00:00 00:00:00 Management Holly L Y HEALTH 350.1.13.10 [place] [id number] [address] 2020-06-17 2020-06-17 Charmaine Ace [facility] 1.2.840.114 [id number] Univers 00:00:00 00:00:00 Jud Y HEALTH 350.1.13.10 it[place] [id number] [place] [address] [place] 2020-06-17 2020-06-17 Allen [place] [facility] 1.2.305.091 [id number] Univers 00:00:00 00:00:00 Management Holly L Y HEALTH 350.1.13.10 [place] [id number] [address] 2020-05-21 2020-05-21 Case Corrie [facility] 1.2.840.114 [id number] Univers 00:00:00 00:00:00 Management Nechelle Y HEALTH 350.1.13.10 it[place] [phone] [address] 2020-05-17 2020-05-17 Telephone Corrie [address]114 [id number] Univers 00:00:00 00:00:00 [facility] 350.1.13.10 [place] [id number] [address] 2020-05-01 2020-05-01 Outpatient R VIVIANA, [facility] [id number] Univers 11:40:00 11:40:00 BRIANNA ity of [facility] 2020-02-06 2020-02-06 Allen Durbin [facility] 1.2.840.114 [id number] Univers 00:00:00 00:00:00 Management Erika L Y HEALTH 350.1.13.10 [place] [phone] [address] 2020-01-31 2020-01-31 Refill [facility] 1.2.216.086 [id number] Univers 00:00:00 00:00:00 [facility] 350.1.13.10 i ty [place] [id number] [address] 2019-12-20 2019-12-20 Digital Media Strategist [facility] UNIVERSIT 1.2.840.114 [id number] Univers 12:22:52 12:37:52 Visit Wagner [facility] 350.1.13.10 ity [place] [phone] [address] 2019-12-20 2019-12-20 Office [facility] 1.2.679.663 [id number] Univers 11:00:05 12:19:49 Visit [facility] 350.1.13.10 i ty [place] [phone] [address] 2019-12-20 2019-12-20 Outpatient [facility] [id number] Univers 10:30:00 10:30:00 [facility] 2019-12-19 2019-12-19 Telephone Pranav Ramirez [facility] 1.2.840.114 [id number] Univers 00:00:00 00:00:00 [facility] R Y HEALTH 350.1.13.10 [place] [id number] [address] 2019-12-05 2019-12-05 Outpatient [facility] [id number] Univers 10:30:00 10:30:00 [facility] 2019-12-04 2019-12-04 Telephone Irma [facility] 1.2.840.114 [id number] Univers 00:00:00 00:00:00 Jarek L Y HEALTH 350.1.13.10 [place] [id number] [address] 2019-11-28 2019-11-28 Case Gifty, [facility] 1.2.840.114 [id number] Univers 00:00:00 00:00:00 Management Erika L Y HEALTH 350.1.13.10 [place] [id number] [address] 2019-11-14 2019-11-14 Outpatient [facility] [id number] Univers 11:30:00 11:30:00 [facility] 2019-10-26 2019-10-26 Case Paty [facility] 1.2.840.114 [id number] Univers 00:00:00 00:00:00 Management Jenn L Y HEALTH 350.1.13.10 [place] [phone] [address] 2019-10-20 2019-10-20 [facility] 1.2.840.114 [id number] Univers 00:00:00 00:00:00 Jenn L Y HEALTH 350.1.13.10 [place] [id number] [address] 2019-10-18 2019-10-18 Charmaine Durbin [facility] 1.2.840.114 [id number] Univers 00:00:00 00:00:00 Erika L Y HEALTH 350.1.13.10 it[place] [id number] [address] 2019-10-06 2019-10-06 [facility] [id number] Univers 16:00:00 16:00:00 BRITTNEE ity of [facility] 2019-10-05 2019-10-05 [facility] 12.840.114 [id number] Univers 00:00:00 00:00:00 Jenn L Y HEALTH 350.1.13.10 [place] [id number] [address] 2019-09-12 2019-09-12 Case Gifty, [facility] 1.2.840.114 [id number] Univers 00:00:00 00:00:00 Management Erika L Y HEALTH 350.1.13.10 [place] [phone] [address] 2019-09-05 2019-09-05 Case Pranav Ramirez, [facility] 1.2.840.114 [id number] Univers 00:00:00 00:00:00 Management Erika R Y HEALTH 350.1.13.10 it[place] [id number] [address] 2019-07-04 2019-07-04 Case Felix, [facility] 1.2.213.069 [id number] Univers 00:00:00 00:00:00 Management Holly L Y HEALTH 350.1.13.10 it[place] [id number] [address] 2019-05-24 2019-05-24 Allen [place] UNIVERSIT 1.2.952.054 [id number] Univers 00:00:00 00:00:00 Management Holly L Y HEALTH 350.1.13.10 [place] [id number] [address] 2019-05-24 2019-05-24 Allen [place] UNIVERSIT 1.2.165.314 [id number] Univers 00:00:00 00:00:00 Management Holly L Y HEALTH 350.1.13.10 it[place] [id number] [address] 2019-04-10 2019-04-10 Allen Washington [facility] 1.2.217.918 [id number] Univers 00:00:00 00:00:00 Management Holly L Y HEALTH 350.1.13.10 it[place] [id number] [address] 2019-04-07 2019-04-07 Office [facility], [facility] 1.2.539.487 [id number] Univers 16:06:14 17:01:48 Visit Brittnee Y HEALTH 350.1.13.10 i ty of [place] [id number] [address] 2019-04-07 2019-04-07 Outpatient R [facility] [id number] Univers 16:00:00 17:01:48 BRITTNEE ity of [facility] 2019-04-07 2019-04-07 Orders Doctor RACHEL 1.2.840.114 [id number] Univers 00:00:00 00:00:00 Only Unassigned, TANESHA 350.1.13.10 ity of [facility] 4.2.7.2.686 Edgardo as [phone] [address] 2019-04-07 2019-04-07 Allen [place] [facility] 1.2.884.622 [id number] Univers 00:00:00 00:00:00 Management Holly L Y HEALTH 350.1.13.10 ity [place] [phone] [place] [address] [place] 2019-03-29 2019-03-29 Case Gifty UNIVERSIT 1.2.840.114 [id number] Univers 00:00:00 00:00:00 Management Erika L Y HEALTH 350.1.13.10 [place] [phone] [address] 2019-03-21 2019-03-21 Case ANNAMARIA [facility] 1.2.840.114 [id number] Univers 00:00:00 00:00:00 Management Erika L Y HEALTH 350.1.13.10 [place] [id number] [address] 2019-01-23 2019-01-25 Inpatient X EMILIO [facility] [id number] Univers 10:58:16 10:52:00 MILLER ity [facility] 2018-11-04 2018-11-04 Digital Media Strategist [facility] UNIVERSIT 1.2.840.114 [id number] [facility] 14:23:52 14:30:23 Visit [facility] 350.1.13.10 ity of [place] [phone] [facility] [address] 2018-11-04 2018-11-04 Office [facility] 1.2.056.086 [id number] Univers 13:38:01 14:18:37 Visit [facility] 350.1.13.10 i ty of [place] [phone] [place] [address] [place] 2018-11-04 2018-11-04 Orders Doctor RACHEL 1.2.840.114 [id number] Univers 00:00:00 00:00:00 Only Unassigned, TANESHA 350.1.13.10 ity of [facility] 4.2.7.2.686 Edgardo as [phone] [facility] [address] 2018-10-31 2018-10-31 Case Paty UNIVERSIT 1.2.840.114 [id number] Univers 00:00:00 00:00:00 Management Jenn L Y HEALTH 350.1.13.10 ity of [place] [id number] [place] [address] [place] 2018-10-27 2018-10-27 Telephone Pranav [facility], [facility] 1.2.840.114 [id number] Univers 00:00:00 00:00:00 Erika R Y HEALTH 350.1.13.10 ity of [place] [phone] [place] [address] [place] 2018-10-20 2018-10-20 Telephone Pranav [facility] 1.2.840.114 [id number] Univers 00:00:00 00:00:00 Erika R Y HEALTH 350.1.13.10 [place] [id number] [address] 2018-09-29 2018-09-29 Telephone Pranav [facility] 1.2.840.114 [id number] Univers 00:00:00 00:00:00 Erika R Y HEALTH 350.1.13.10 [place] [id number] [address] 2018-09-27 2018-09-27 [facility] 1.2.840.114 [id number] Univers 00:00:00 00:00:00 Jenn L Y HEALTH 350.1.13.10 [place] [id number] [address] 2018-09-22 2018-09-22 [facility] 1.2.840.114 [id number] Univers 00:00:00 00:00:00 Management Jenn L Y HEALTH 350.1.13.10 [place] [phone] [address] Results This patient has no known results.
--- NOTE | 2022-07-18 13:57 | ER ---
Nurse's Notes [facility] Name: Alden Corona Age: 42 yrs Sex: Male : 1980 Arrival Date: 07/18/2022 Time: 13:35 Bed IW2 Private MD: Diagnosis: Adverse reaction to a drug or medicaments Presentation: 07/18 13:53 Chief complaint: Patient states: Had PCN shot yesterday for syphilis. 10 AM started to ll1 have chills, feels hot, nausea, throat irritation. Coronavirus screen: Client denies travel out of the [place] in the last 14 days. At this time, the client does not indicate any symptoms associated with coronavirus-19. Ebola Screen: Patient denies travel to an Ebola-affected area in the 21 days before illness onset. Onset: The symptoms/episode began/occurred this morning. Anaphylaxis evaluation, no signs or symptoms of anaphylaxis were noted. Initial Sepsis Screen: Does the patient meet any 2 criteria? No. Patient's initial sepsis screen is negative. Does the patient have a suspected source of infection? No. Patient's initial sepsis screen is negative. Risk Assessment: Do you want to hurt yourself or someone else? Patient reports no desire to harm self or others. Onset of symptoms was July 18, 2022. 13:53 Method Of Arrival: Ambulatory ll1 13:53 Acuity: SARA 4 ll1 Historical: - Allergies: 13:53 PENICILLINS; ll1 - PMHx: 13:53 HIV; ll1 - PSHx: 13:53 None; ll1 - Immunization history:: Adult Immunizations up to date. - Social history:: Smoking status: Reported history of juuling and/or vaping. Vital Signs: 13:53 BP 137 / 88; Pulse 73; Resp 16; Temp 99.5; Pulse Ox 99% ; Weight 89.81 kg; Height 5 ft. ll1 11 in. ; Pain 5/10; 13:53 Body Mass Index 27.62 (89.81 kg, 180.34 cm) ll1 13:53 Pain Scale: Adult ll1 ED Course: 13:38 Patient arrived in ED. mr 13:40 Arm band placed on Patient no major SOB or distress noted. ll1 13:43 José Luis Max PA is PHCP. [facility] 13:43 Adonis Jara MD is Attending Physician. [facility] 13:55 Triage completed. 1 14:57 Patient has correct armband on for positive identification. jl7 14:57 No provider procedures requiring assistance completed. Patient did not have IV access jl7 during this emergency room visit. Administered Medications: 14:50 Drug: Dexamethasone IM 10 mg Route: IM; Site: right deltoid; jl7 14:57 Follow up: Response: No adverse reaction jl7 Medication: 14:57 VIS not applicable for this client. jl7 Outcome: 13:57 Discharge ordered by . [facility] 14:57 Discharged to home ambulatory. jl7 14:57 Condition: stable 14:57 Discharge instructions given to patient, Instructed on discharge instructions, follow up and referral plans. medication usage, Demonstrated understanding of instructions, follow-up care, medications, Prescriptions given X 2. 14:58 Patient left the ED. jl7 Signatures: José Luis Max PA PA jmm Rivera, Mary Landen Valenzuela RN RN jl7 Martin Trimble RN RN ll1
--- NOTE | 2022-07-18 13:58 | EDPHYS ---
Physician Documentation [facility] Name: Alden Corona Age: 42 yrs Sex: Male : 1980 Arrival Date: 07/18/2022 Time: 13:35 Bed IW2 Private MD: ED Physician Adonis Jara HPI: 07/18 13:47 This 42 yrs old Black Male presents to ER via Ambulatory with complaints of Allergic jmm Reaction. 13:47 This is a 42 year old male with a history of HIV that presents to the ED with jmm complaints of throat and chest tightness. Patient has an allergy to pcn. Took a bicillin shot yesterday. Denies rash, denies vomiting, denies sob. . Historical: - Allergies: 13:53 PENICILLINS; ll1 - PMHx: 13:53 HIV; ll1 - PSHx: 13:53 None; ll1 - Immunization history:: Adult Immunizations up to date. - Social history:: Smoking status: Reported history of juuling and/or vaping. ROS: 13:47 Constitutional: Negative for fever, chills, and weight loss, Cardiovascular: Negative jmm for chest pain, palpitations, and edema, Respiratory: Negative for shortness of breath, cough, wheezing, and pleuritic chest pain. 13:47 All other systems are negative. Exam: 13:47 Constitutional: This is a well developed, well nourished patient who is awake, alert, jmm and in no acute distress. Head/Face: atraumatic. Eyes: EOMI, no conjunctival erythema appreciated 13:47 Neck: Trachea midline, Supple Chest/axilla: Normal chest wall appearance and motion. Cardiovascular: Regular rate and rhythm. No edema appreciated Respiratory: Normal respirations, no respiratory distress appreciated Abdomen/GI: Non distended Back: Normal ROM Skin: General appearance color normal MS/ Extremity: Moves all extremities, no obvious deformities appreciated, no edema noted to the lower extremities Neuro: Awake and alert Psych: Behavior is normal, Mood is normal, Patient is cooperative and pleasant 13:47 ENT: Posterior pharynx: is normal. Vital Signs: 13:53 BP 137 / 88; Pulse 73; Resp 16; Temp 99.5; Pulse Ox 99% ; Weight 89.81 kg; Height 5 ft. ll1 11 in. ; Pain 5/10; 13:53 Body Mass Index 27.62 (89.81 kg, 180.34 cm) ll1 13:53 Pain Scale: Adult ll1 MDM: 13:[address] [facility] Administered Medications: 14:50 Drug: Dexamethasone IM 10 mg Route: IM; Site: right deltoid; jl7 14:57 Follow up: Response: No adverse reaction jl7 Disposition Summary: 07/18/22 13:57 Discharge Ordered Location: Home [facility] Condition: Stable [facility] Diagnosis - Adverse reaction to a drug or medicaments [facility] Followup: [facility] - With: Private Physician - When: 2 - 3 days - Reason: Recheck today's complaints, Continuance of care, Re-evaluation by your physician Discharge Instructions: - Drug Allergy [facility] - Discharge Summary Sheet ll1 Forms: - Medication Reconciliation Form [facility] - Thank You Letter [facility] - Antibiotic Education [facility] - Prescription Opioid Use [facility] - Work release form ll1 Prescriptions: - Hydroxyzine HCl 25 mg Oral Tablet - take 1 tablet by ORAL route every 6 hours As needed; 30 tablet; Refills: 0, [facility] Product Selection Permitted - Pepcid 20 mg Oral Tablet - take 1 tablet by ORAL route every 12 hours for 10 days; 20 tablet; Refills: 0, [facility] Product Selection Permitted Signatures: José Luis Max PA PA jmm Leal, Jahala RN RN jl7 Martin Trimble RN RN ll1
[2022-07-18] MEDS ORDERED: dexAMETHasone 10 MG/ML VIAL ONE (15:00)
[2022-07-18 15:29] VITALS: BP 137/88; TEMP 99.5; O2SAT 99
== END 2022-07-18 14:58 | disposition home or self-care (01) ==
LOC: ER 13:35
DX: R07.89 Other chest pain (principal); T50.995A Adverse effect of other drugs, medicaments and biological substances, initial encounter; Z21 Asymptomatic human immunodeficiency virus [HIV] infection status; Z88.0 Allergy status to penicillin
CPT/HCPCS: 96372; 99284; J1100

== ENCOUNTER 2022-08-08 03:15 | Emergency (ER) | payer OTHER ==
--- OUTSIDE RECORDS SUMMARY | 2022-08-08 03:21 | XMS REPORT | Continuity of Care Document ---
:1980 Author Organization [facility] t Address [address] [place] [address] Care Team Providers Name Role Phone Pcp, Patient Does Not Have A Primary Care Physician [id number] BRITTNEE EDWARD Attending Clinician Unavailable Zev Yousif MA Attending Clinician Unavailable [facility] Attending Clinician Unavailable Brittnee Kerr Attending Clinician Jarek Solis RN Attending Clinician Unavailable Jenn Newman LVN Attending Clinician Unavailable Netta Denton MA Attending Clinician Unavailable Pob, [facility] Main Attending Clinician Unavailable Doctor Unassigned, [place] Attending Clinician Unavailable Erika Durbin RN Attending Clinician Unavailable Holly Washington MA Attending Clinician Unavailable Vaccine, [facility] Attending Clinician Unavailable Pancho Chin MD Attending Clinician Zhanna Lambert MD Attending Clinician [phone] Erika Robins RN Attending Clinician Unavailable [...] 2018-02 Unive rs 2-10 ity of 00:00: [address] Fever in Fever in Disease Active [...] ity of adverse 00:00: [place] reaction 00 [facility] PENICILL DRUG Active Unknown-Cmnt Un favio IN INGREDI 03-08 ity of 00:00: [place] 00 [facility] Penicill Propensi Active Unknown - 2018- Child Uni vers in ty to See comments 03-08 wen ity of adverse 00:00: allergy. [place] reaction 00 [facility] [place] Social History Social Habit Start Date Stop Date Quantity Comments Source History of Cigarette Smoker Universi ty of tobacco use [facility] Exposure to 2022-01-06 2022-01-16 Not sure University of SARS-CoV-2 00:00:00 15:43:00 [facility] (event) [place] Tobacco Comment 2022-01-16 2022-01-16 Patient states he Un iversity of 00:00:00 00:00:00 vapes everyday [facility] Tobacco use and 2022-01-16 2022-01-16 Former smokeless Uni versity of exposure 00:00:00 00:00:00 tobacco user [facility] Sex Assigned At [birth year] Universit y of 00:00:00 00:00:00 [facility] Smoking Status Start Date Stop Date Source Ex-smoker 2022-01-16 00:00:00 2022-01-16 00:00:[address] [facility] Smokes tobacco daily 2019-04-07 00:00:[address] [facility] it[address] [facility] Medications Ordered Filled Start Stop Current Ordering Indication Dosage Frequency Signature Comments Components Source Medication Medication Date Date Medication? Clinician (SIG) Name Name penicillin 2022- Yes [id number] 2.410 Univers g 07-17 ity of benzathine 16:15: 04:14 [place] (BICILLIN 00 :00 Medical L-A) Branch injection 2.4 Million Units BIKTARVY 2021-02 Yes [id number] 1{tbl} Take 1 U nivers 50-200-25 2-02 tablet by ity o f [place] morning. Branch BIKTARVY 2021-02 Yes [id number] 1{tbl} Take 1 U nivers 50-200-25 2-02 tablet by ity o f [place] morning. Branch BIKTARVY 2021-02 Yes [id number] 1{tbl} Take 1 U nivers 50-200-25 2-02 tablet by ity o f [place] tablet [place] morning. Branch BIKTARVY 2021-02 Yes [id number] 1{tbl} Take 1 U nivers 50-200-25 2-02 tablet by ity o f [place] morning. Branch BIKTARVY 2021-02 Yes [id number] 1{tbl} Take 1 U nivers 50-200-25 2-02 tablet by ity o f [place] tablet [place] morning. Branch BIKTARVY 2021-02 Yes [id number] 1{tbl} Take 1 U nivers 50-200-25 2-02 tablet by ity o f [place] tablet [place] morning. [place] AMANDA 2021-02 Yes [id number] 1{tbl} Take 1 U nivers 50-200-25 2-02 tablet by ity o f [place] tablet [place] morning. [place] AMANDA 2021-02 Yes [id number] 1{tbl} Take 1 U nivers 50-200-25 2-02 tablet by ity o f [place] tablet [place] the [place] morning. [place] AMANDA 2021-02 Yes [id number] 1{tbl} Take 1 U nivers 50-200-25 2-02 tablet by ity o f [place] tablet [place] the [place] morning. [place] MAANDA 2021-02 Yes [id number] 1{tbl} Take 1 U nivers 50-200-25 2-02 tablet by ity o f mg tablet [place] the [place] morning. [place] AMANDA 2021-02 Yes [id number] 1{tbl} Take 1 U nivers 50-200-25 2-02 tablet by ity o f [place] tablet [place] the [place] morning. [place] AMANDA 2021-02 Yes [id number] 1{tbl} Take 1 U nivers 50-200-25 2-02 tablet by ity o f [place] tablet [place] the [place] morning. [place] AMANDA 2021-02 Yes [id number] 1{tbl} Take 1 U nivers 50-200-25 2-02 tablet by ity o f mg tablet [place] the [place] morning. [place] ECHOY 2021-02 Yes [id number] 1{tbl} Take 1 U nivers 50-200-25 2-02 tablet by ity o f [place] tablet [place] the [place] morning. [place] doxycycline Yes [id number] 1 po BID x Univers hyclate 100 5-06 [id number] 28 days ity of mg capsule 00:00: [place] 00 Medical Branch doxycycline 2-0 Yes [id number] 1 po BID x Univers hyclate 100 06-20 [id number] 28 days ity of mg capsule 00:00: [place] 00 Medical Branch doxycycline 2022-0 Yes [id number] 1 po BID x Univers hyclate 100 06-20 [id number] 28 days ity of mg capsule 00:00: [place] [facility] doxycycline 2022-0 Yes [id number] 1 po BID x Univers hyclate 100 06-20 [id number] 28 days ity of mg capsule 00:00: [place] 00 Medical Branch doxycycline 2022-0 Yes [id number] 1 po BID x Univers hyclate 100 06-20 [id number] 28 days ity of mg capsule 00:00: [place] [facility] doxycycline 2022-0 Yes [id number] 1 po BID x Univers hyclate 100 06-20 [id number] 28 days ity of mg capsule 00:00: [place] [address] Medical Branch doxycycline 2022-0 2022- No [id number] 1 po BID x Univers hyclate 100 06-20 [id number] 28 days ity of mg capsule 00:00: 00:00 [place] 00 :00 Medical Branch doxycycline 2022-0 2022- No [id number] 1 po BID x Univers hyclate 100 06-20 [id number] 28 days ity of mg capsule 00:00: 00:00 [place] 00 :00 Medical Branch BIKTARVY 2021-0 Yes [id number] TAKE ONE U nivers 50-200-25 5-04 TABLET BY ity o f mg tablet 00:00: MOUTH [place] DAILY Medical Branch BIKTARVY 2021-0 Yes [id number] TAKE ONE U nivers 50-200-25 5-04 TABLET BY ity o f mg tablet 00:00: MOUTH [place] DAILY Medical Branch BIKTARVY 2021-0 Yes [id number] TAKE ONE U nivers 50-200-25 5-04 TABLET BY ity o f mg tablet 00:00: MOUTH [place] DAILY Medical Branch BIKTARVY 2021-0 Yes [id number] TAKE ONE U nivers 50-200-25 5-04 TABLET BY ity o f mg tablet 00:00: MOUTH [place] DAILY Medical Branch BIKTARVY 2021-0 Yes [id number] TAKE ONE U nivers 50-200-25 5-04 TABLET BY ity o f mg tablet 00:00: MOUTH [place] 00 DAILY Medical Branch BIKTARVY Yes [id number] TAKE ONE U nivers 50-200-25 5-04 TABLET BY ity o f mg tablet 00:00: MOUTH [place] 00 DAILY Medical Branch BIKTARVY Yes [id number] TAKE ONE U nivers 50-200-25 5-04 TABLET BY ity o f mg tablet 00:00: MOUTH [place] DAILY Medical Branch BIKTARVY Yes [id number] TAKE ONE U nivers 50-200-25 5-04 TABLET BY ity o f mg tablet 00:00: MOUTH [place] DAILY Medical Branch BIKTARVY Yes [id number] TAKE ONE U nivers 50-200-25 5-04 TABLET BY ity o f mg tablet 00:00: MOUTH [place] 00 DAILY Medical Branch BIKTARVY Yes [id number] TAKE ONE U nivers 50-200-25 5-04 TABLET BY ity o f mg tablet 00:00: MOUTH [place] 00 DAILY Medical Branch BIKTARVY 2021- No [id number] TAKE ONE Univers 50-200-25 5-04 12-02 TABLET BY ity of mg tablet 00:00: 00:00 [facility] 00 :00 DAILY Medical Branch BIKTARVY 0 2021- No [id number] TAKE ONE Univers 50-200-25 5-04 12-02 TABLET BY ity of mg tablet 00:00: 00:00 [facility] 00 :00 DAILY Medical Branch BIKTARVY 2020-02- No [id number] TAKE ONE Univers 50-200-25 2-17 05-04 TABLET BY ity of mg tablet 00:00: 00:00 [facility] 00 :00 DAILY Medical Branch bictegrav-e 2020- No [id number] TAKE ONE Univers mtricit-ten 6-21 12-17 TABLET BY it y of ofov ala 00:00: 00:00 MOUTH [place] 50-200-25 00 :00 DAILY Medical mg tablet Branch Immunizations Ordered Filled Immunization Date Status Comments Sour e Immunization Name Name SARS-COV-2 COVID-19 2022-01-16 [...] Completed Unive rsity of PFIZER VACCINE 00:00:00 [facility] Branch Influenza Virus 2020-12-20 Completed Universit y of Vaccine Quad IM, 00:00:00 [place] Me dical Preserv and ABX Branch Free 6 MO-64 YRS SARS-COV-2 COVID-19 2020-12-20 Completed Unive rsity of PFIZER VACCINE 00:00:00 [facility] Branch Influenza Virus 2020-12-20 Completed Universit y of Vaccine Quad IM, 00:00:00 [place] Me dical Preserv and ABX Branch Free 6 MO-64 YRS SARS-COV-2 COVID-19 2020-12-20 Completed Unive rsity of PFIZER VACCINE 00:00:00 [facility] Branch Influenza Virus 2020-12-20 Completed Universit y of Vaccine Quad IM, 00:00:00 [place] Me dical Preserv and ABX Branch Free 6 MO-64 YRS SARS-COV-2 COVID-19 2020-12-20 Completed Unive rsity of PFIZER VACCINE 00:00:00 [facility] Branch Influenza Virus 2020-12-20 Completed Universit y of Vaccine Quad IM, 00:00:00 [place] Me dical Preserv and ABX Branch Free 6 MO-64 YRS SARS-COV-2 COVID-19 2020-12-20 Completed Unive rsity of PFIZER VACCINE 00:00:00 [facility] Influenza Virus 2020-12-20 Completed Universit y of Vaccine Quad IM, 00:00:00 [place] Me dical Preserv and ABX Branch Free 6 MO-64 YRS SARS-COV-2 COVID-19 2020-12-20 Completed Unive rsity of PFIZER VACCINE 00:00:00 [facility] Influenza Virus 2020-12-20 Completed Universit y of Vaccine Quad IM, 00:00:00 [place] Me dical Preserv and ABX Branch Free 6 MO-64 YRS SARS-COV-2 COVID-19 2020-12-20 Completed Unive rsity of PFIZER VACCINE 00:00:00 [facility] Influenza Virus 2020-12-20 Completed Universit y of Vaccine Quad IM, 00:00:00 [place] Me dical Preserv and ABX Branch Free 6 MO-64 YRS SARS-COV-2 COVID-19 2020-12-20 Completed Unive rsity of PFIZER VACCINE 00:00:00 [facility] Influenza Virus 2020-12-20 Completed Universit y of Vaccine Quad IM, 00:00:00 [place] [facility] dical Preserv and ABX Branch Free 6 MO-64 YRS SARS-COV-2 COVID-19 2020-12-20 Completed Unive rsity of PFIZER VACCINE 00:00:00 [facility] Influenza Virus 2020-12-20 Completed Universit y of Vaccine Quad IM, 00:00:00 [facility] [place] [facility] dical Preserv and ABX Branch Free 6 MO-64 YRS SARS-COV-2 COVID-19 2020-12-20 Completed Unive rsity of PFIZER VACCINE 00:00:00 [facility] Influenza Virus 2020-12-20 Completed Universit y of Vaccine Quad IM, 00:00:00 [facility] [place] [facility] dical Preserv and ABX Branch Free 6 MO-64 YRS SARS-COV-2 COVID-19 2020-12-20 Completed Unive rsity of PFIZER VACCINE 00:00:00 [facility] Influenza Virus 2020-12-20 Completed Universit y of Vaccine Quad IM, 00:00:00 [facility] [place] [facility] dical Preserv and ABX Branch Free 6 MO-64 YRS SARS-COV-2 COVID-19 2020-12-20 Completed Unive rsity of PFIZER VACCINE 00:00:00 [facility] Influenza Virus 2020-12-20 Completed Universit y of Vaccine Quad IM, 00:00:00 [facility] [place] [facility] dical Preserv and ABX Branch Free 6 MO-64 YRS SARS-COV-2 COVID-19 2020-12-20 Completed Unive rsity of PFIZER VACCINE 00:00:00 [facility] Influenza Virus 2020-12-20 Completed Universit y of Vaccine Quad IM, 00:00:00 [facility] [place] [facility] dical Preserv and ABX Branch Free 6 MO-64 YRS SARS-COV-2 COVID-19 2020-12-20 Completed Unive rsity of PFIZER VACCINE 00:00:00 [facility] Influenza Virus 2020-12-20 Completed Universit y of Vaccine Quad IM, 00:00:00 [facility] [place] [facility] dical Preserv and ABX Branch Free 6 MO-64 YRS SARS-COV-2 COVID-19 2020-12-20 Completed Unive rsity of PFIZER VACCINE 00:00:00 [facility] Influenza Virus 2020-12-20 Completed Universit y of Vaccine Quad IM, 00:00:00 [place] Me dical Preserv and ABX Branch Free 6 MO-64 YRS SARS-COV-2 COVID-19 2020-12-20 Completed Unive rsity of PFIZER VACCINE 00:00:00 [facility] Influenza Virus 2020-12-20 Completed Universit y of Vaccine Quad IM, 00:00:00 [place] Me dical Preserv and ABX Branch Free 6 MO-64 YRS SARS-COV-2 COVID-19 2020-12-20 Completed Unive rsity of PFIZER VACCINE 00:00:00 [facility] Influenza Virus 2020-12-20 Completed Universit y of Vaccine Quad IM, 00:00:00 [place] Me dical Preserv and ABX Branch Free 6 MO-64 YRS SARS-COV-2 COVID-19 2020-12-20 Completed Unive rsity of PFIZER VACCINE 00:00:00 [facility] Influenza Virus 2020-12-20 Completed Universit y of Vaccine Quad IM, 00:00:00 [place] Me dical Preserv and ABX Branch Free 6 MO-64 YRS SARS-COV-2 COVID-19 2020-12-20 Completed Unive rsity of PFIZER VACCINE 00:00:00 [facility] Influenza Virus 2020-12-20 Completed Universit y of Vaccine Quad IM, 00:00:00 [place] Me dical Preserv and ABX Branch Free 6 MO-64 YRS SARS-COV-2 COVID-19 2020-12-20 Completed Unive rsity of PFIZER VACCINE 00:00:00 [facility] Influenza Virus 2020-12-20 Completed Universit y of Vaccine Quad IM, 00:00:00 [place] Me dical Preserv and ABX Branch Free 6 MO-64 YRS SARS-COV-2 COVID-19 2020-12-20 Completed Unive rsity of PFIZER VACCINE 00:00:00 [facility] Influenza Virus 2020-12-20 Completed Universit y of Vaccine Quad IM, 00:00:00 [place] Me dical Preserv and ABX Branch Free 6 MO-64 YRS SARS-COV-2 COVID-19 2020-12-20 Completed Unive rsity of PFIZER VACCINE 00:00:00 [facility] Influenza Virus 2020-12-20 Completed Universit y of Vaccine Quad IM, 00:00:00 [place] Me dical Preserv and ABX Branch Free 6 MO-64 YRS SARS-COV-2 COVID-19 2020-12-20 Completed Unive rsity of PFIZER VACCINE 00:00:00 [facility] Influenza Virus 2020-12-20 Completed Universit y of Vaccine Quad IM, 00:00:00 [facility] [place] [facility] dical Preserv and ABX Branch Free 6 MO-64 YRS SARS-COV-2 COVID-19 2020-12-20 Completed Unive rsity of PFIZER VACCINE 00:00:00 [facility] Influenza Virus 2020-12-20 Completed Universit y of Vaccine Quad IM, 00:00:00 [facility] [place] [facility] dical Preserv and ABX Branch Free 6 MO-64 YRS SARS-COV-2 COVID-19 2020-12-20 Completed Unive rsity of PFIZER VACCINE 00:00:00 [facility] Influenza Virus 2020-12-20 Completed Universit y of Vaccine Quad IM, 00:00:00 [facility] [place] [facility] dical Preserv and ABX Branch Free 6 MO-64 YRS Influenza Virus 2019-12-20 Completed Universit y of Vaccine Quad .5 mL 00:00:00 [place] [facility] IM 6+ MO Branch Influenza Virus 2019-12-20 Completed Universit y of Vaccine Quad .5 mL 00:00:00 [place] Medical IM 6+ MO Branch Influenza Virus 2019-12-20 Completed Universit y of Vaccine Quad .5 mL 00:00:00 [place] Medical IM 6+ MO Branch Influenza Virus [...] y of Vaccine Quad .5 mL 00:00:00 [place] Medical IM 6+ MO Branch Influenza Virus [...] y of Vaccine Quad .5 mL 00:00:00 [place] [facility] IM 6+ MO Branch Hepatitis A Adult 2019-01-03 Completed Univers ity of 00:00:00 [facility]9 2019-01-03 Completed University of 00:00:00 [facility] Hepatitis A Adult 2019-01-03 Completed Univers ity of 00:00:00 [facility]9 2019-01-03 Completed University of 00:00:00 [facility] Hepatitis A Adult 2019-01-03 Completed Univers ity of 00:00:00 [facility]9 2019-01-03 Completed University of 00:00:00 [facility] Hepatitis A Adult 2019-01-03 Completed Univers ity of 00:00:00 [facility]9 2019-01-03 Completed University of 00:00:00 [facility] Hepatitis A Adult 2019-01-03 Completed Univers ity of 00:00:00 [facility]9 2019-01-03 Completed University of 00:00:00 [facility] Hepatitis A Adult 2019-01-03 Completed Univers ity of 00:00:00 [facility]9 2019-01-03 Completed University of 00:00:00 [facility] Hepatitis A Adult 2019-01-03 Completed Univers ity of 00:00:00 [facility]9 2019-01-03 Completed University of 00:00:00 [facility] Hepatitis A Adult 2019-01-03 Completed Univers ity of 00:00:00 [facility] 2019-01-03 Completed University of 00:00:00 [facility] Hepatitis A Adult 2019-01-03 Completed Univers ity of 00:00:00 [facility]9 2019-01-03 Completed University of 00:00:00 [facility] Hepatitis A Adult 2019-01-03 Completed Univers ity of 00:00:00 [facility]9 2019-01-03 Completed University of 00:00:00 [facility] Hepatitis A Adult 2019-01-03 Completed Univers ity of 00:00:00 [facility] 2019-01-03 Completed University of 00:00:00 [facility] Hepatitis A Adult 2019-01-03 Completed Univers ity of 00:00:00 [facility]9 2019-01-03 Completed University of 00:00:00 [facility] Hepatitis A Adult 2019-01-03 Completed Univers ity of 00:00:00 [facility]9 2019-01-03 Completed University of 00:00:00 [facility] Hepatitis A Adult 2019-01-03 Completed Univers ity of 00:00:00 [facility]9 2019-01-03 Completed University of 00:00:00 [facility] Hepatitis A Adult 2019-01-03 Completed Univers ity of 00:00:00 [facility] 2019-01-03 Completed University of 00:00:00 [facility] Hepatitis A Adult 2019-01-03 Completed Univers ity of 00:00:00 [facility]9 2019-01-03 Completed University of 00:00:00 [facility] Hepatitis A Adult 2019-01-03 Completed Univers ity of 00:00:00 [facility] 2019-01-03 Completed University of 00:00:00 [facility] Hepatitis A Adult 2019-01-03 Completed Univers ity of 00:00:00 [facility]9 2019-01-03 Completed University of 00:00:00 [facility] Hepatitis A Adult 2019-01-03 Completed Univers ity of 00:00:00 [facility] 2019-01-03 Completed University of 00:00:00 [facility] Hepatitis A Adult 2019-01-03 Completed Univers ity of 00:00:00 [facility] 2019-01-03 Completed University of 00:00:00 [facility] Hepatitis A Adult 2019-01-03 Completed Univers ity of 00:00:00 [facility] 2019-01-03 Completed University of 00:00:00 [facility] Hepatitis A Adult 2019-01-03 Completed Univers ity of 00:00:00 [facility]9 2019-01-03 Completed University of 00:00:00 [facility] Hepatitis A Adult 2019-01-03 Completed Univers ity of 00:00:00 [facility] 2019-01-03 Completed University of 00:00:00 [facility] Hepatitis A Adult 2019-01-03 Completed Univers ity of 00:00:00 [facility] 2019-01-03 Completed University of 00:00:00 [facility] Hepatitis A Adult 2019-01-03 Completed Univers ity of 00:00:00 [facility]9 2019-01-03 Completed University of 00:00:00 [facility] Influenza Virus 2018-11-18 Completed Universit y of Vaccine Quad .5 mL 00:00:00 [facility] 6+ [facility] Influenza Virus 2018-11-18 Completed Universit y of [...] y of Vaccine Quad .5 mL 00:00:00 [facility] IM 6+ MO Branch Pneumococcal 2018-11-04 Completed University [...] Completed Universit y of Conjugate, PCV13 00:00:00 [facility] [place] [facility] dical (Prevnar 13) Branch Hepatitis A Adult 2018-06-22 Completed Univers ity of 00:00:00 [facility] Branch Pneumococcal 13 2018-06-22 Completed Universit y of Conjugate, PCV13 00:00:00 [place] Me dical (Prevnar 13) Branch Hepatitis A Adult 2018-06-22 Completed Univers ity of 00:00:00 [facility] Branch Pneumococcal 13 2018-06-22 Completed Universit y of Conjugate, PCV13 00:00:00 [place] Me dical (Prevnar 13) Branch Hepatitis A Adult 2018-06-22 Completed Univers ity of 00:00:00 [facility] Branch Pneumococcal 13 2018-06-22 Completed Universit y of Conjugate, PCV13 00:00:00 [place] Me dical (Prevnar 13) Branch Hepatitis A Adult 2018-06-22 Completed Univers ity of 00:00:00 [facility] Branch Pneumococcal 13 2018-06-22 Completed Universit y of Conjugate, PCV13 00:00:00 [place] Me dical (Prevnar 13) Branch Hepatitis A Adult 2018-06-22 Completed Univers ity of 00:00:00 [facility] Pneumococcal 13 2018-06-22 Completed Universit y of Conjugate, PCV13 00:00:00 [place] Me dical (Prevnar 13) Branch Hepatitis A Adult 2018-06-22 Completed Univers ity of 00:00:00 [facility] Branch Pneumococcal 13 2018-06-22 Completed Universit y of Conjugate, PCV13 00:00:00 [facility] [place] [facility] dical (Prevnar 13) Branch Hepatitis A Adult 2018-06-22 Completed Univers ity of 00:00:00 [facility] Branch Pneumococcal 13 2018-06-22 Completed Universit y of Conjugate, PCV13 00:00:00 [facility] [place] [facility] dical (Prevnar 13) Branch Hepatitis A Adult 2018-06-22 Completed Univers ity of 00:00:00 [facility] Branch Pneumococcal 13 2018-06-22 Completed Universit y of Conjugate, PCV13 00:00:00 [facility] [place] [facility] dical (Prevnar 13) Branch Hepatitis A Adult 2018-06-22 Completed Univers ity of 00:00:00 [facility] Branch Pneumococcal 13 2018-06-22 Completed Universit y of Conjugate, PCV13 00:00:00 [place] Me dical (Prevnar 13) Branch Hepatitis A Adult 2018-06-22 Completed Univers ity of 00:00:00 [facility] Pneumococcal 13 2018-06-22 Completed Universit y of Conjugate, PCV13 00:00:00 [facility] [place] [facility] dical (Prevnar 13) Branch Hepatitis A Adult 2018-06-22 Completed Univers ity of 00:00:00 [place] [facility] Pneumococcal 13 2018-06-22 Completed Universit y of Conjugate, PCV13 00:00:00 [place] Me dical (Prevnar 13) Branch Hepatitis A Adult 2018-06-22 Completed Univers ity of 00:00:00 [facility] Branch Pneumococcal 13 2018-06-22 Completed Universit y of Conjugate, PCV13 00:00:00 [place] Me dical (Prevnar 13) Branch Hepatitis A Adult 2018-06-22 Completed Univers ity of 00:00:00 [facility] Branch Pneumococcal 13 2018-06-22 Completed Universit y of Conjugate, PCV13 00:00:00 [place] Me dical (Prevnar 13) Branch Hepatitis A Adult 2018-06-22 Completed Univers ity of 00:00:00 [facility] Branch Pneumococcal 13 2018-06-22 Completed Universit y of Conjugate, PCV13 00:00:00 [place] Me dical (Prevnar 13) Branch Hepatitis A Adult 2018-06-22 Completed Univers ity of 00:00:00 [facility] Branch Pneumococcal 13 2018-06-22 Completed Universit y of Conjugate, PCV13 00:00:00 [place] Me dical (Prevnar 13) Branch Hepatitis A Adult 2018-06-22 Completed Univers ity of 00:00:00 [facility] Branch Pneumococcal 13 2018-06-22 Completed Universit y of Conjugate, PCV13 00:00:00 [facility] dical (Prevnar 13) Branch Hepatitis A Adult 2018-06-22 Completed Univers ity of 00:00:00 [facility] Branch Pneumococcal 13 2018-06-22 Completed Universit y of Conjugate, PCV13 00:00:00 [place] [facility] (Prevnar 13) Branch Hepatitis A Adult 2018-06-22 Completed Univers ity of 00:00:00 [facility] Branch Pneumococcal 13 2018-06-22 Completed Universit y of Conjugate, PCV13 00:00:00 [place] [facility] (Prevnar 13) Branch Hepatitis A Adult 2018-06-22 Completed Univers ity of 00:00:00 [facility] Branch Pneumococcal 13 2018-06-22 Completed Universit y of Conjugate, PCV13 00:00:00 [place] [facility] (Prevnar 13) Branch Hepatitis A Adult 2018-06-22 Completed Univers ity of 00:00:00 [facility] Branch Pneumococcal 13 2018-06-22 Completed Universit y of Conjugate, PCV13 00:00:00 [place] [facility] dical (Prevnar 13) Branch Hepatitis A Adult 2018-06-22 Completed Univers ity of 00:00:00 [facility] Pneumococcal 13 2018-06-22 Completed Universit y of Conjugate, PCV13 00:00:00 [facility] dical (Prevnar 13) Branch Hepatitis A Adult 2018-06-22 Completed Univers ity of 00:00:00 [facility] Pneumococcal 13 2018-06-22 Completed Universit y of Conjugate, PCV13 00:00:00 [facility] dical (Prevnar 13) Branch Hepatitis A Adult 2018-06-22 Completed Univers ity of 00:00:00 [facility] Branch Pneumococcal 13 2018-06-22 Completed Universit y of Conjugate, PCV13 00:00:00 [facility] dical (Prevnar 13) Branch Hepatitis A Adult 2018-06-22 Completed Univers ity of 00:00:00 [facility] Pneumococcal 13 2018-06-22 Completed Universit y of Conjugate, PCV13 00:00:00 [facility] dical (Prevnar 13) Branch Hepatitis A Adult 2018-06-22 Completed Univers ity of 00:00:00 [facility] Influenza Virus 2018-03-08 Completed Universit y of Vaccine Quad .5 mL 00:00:00 [place] [facility] 6+ MO Branch Influenza Virus 2018-03-08 Completed Universit y of Vaccine Quad .5 mL 00:00:00 [place] [facility] 6+ MO Branch Influenza Virus 2018-03-08 Completed Universit y of Vaccine Quad .5 mL 00:00:00 [facility] 6+ MO Branch Influenza Virus 2018-03-08 Completed Universit y of Vaccine Quad .5 mL 00:00:00 [place] [facility] 6+ MO Branch Influenza Virus 2018-03-08 Completed Universit y of Vaccine Quad .5 mL 00:00:00 [place] [facility] 6+ MO Branch Influenza Virus 2018-03-08 Completed Universit y of Vaccine Quad .5 mL 00:00:00 [place] [facility] 6+ MO Branch Influenza Virus 2018-03-08 Completed Universit y of Vaccine Quad .5 mL 00:00:00 [place] [facility] 6+ MO Branch Influenza Virus 2018-03-08 Completed Universit y of Vaccine Quad .5 mL 00:00:00 [place] [facility] 6+ MO Branch Influenza Virus 2018-03-08 Completed Universit y of Vaccine Quad .5 mL 00:00:00 [facility] IM 6+ MO Branch Influenza Virus 2018-03-08 Completed Universit y of Vaccine Quad .5 mL 00:00:00 [place] [facility] 6+ MO Branch Influenza Virus 2018-03-08 Completed Universit y of Vaccine Quad .5 mL 00:00:00 [place] [facility] 6+ MO Branch Influenza Virus 2018-03-08 Completed Universit y of Vaccine Quad .5 mL 00:00:00 [place] [facility] 6+ MO Branch Influenza Virus 2018-03-08 Completed Universit y of Vaccine Quad .5 mL 00:00:00 [place] [facility] 6+ MO Branch Influenza Virus 2018-03-08 Completed Universit y of Vaccine Quad .5 mL 00:00:00 [place] [facility] 6+ MO Branch Influenza Virus 2018-03-08 Completed Universit y of Vaccine Quad .5 mL 00:00:00 [place] [facility] 6+ MO Branch Influenza Virus 2018-03-08 Completed Universit y of Vaccine Quad .5 mL 00:00:00 [facility] 6+ MO Branch Influenza Virus 2018-03-08 Completed Universit y of Vaccine Quad .5 mL 00:00:00 [place] [facility] 6+ MO Branch Influenza Virus 2018-03-08 Completed Universit y of Vaccine Quad .5 mL 00:00:00 [place] [facility] 6+ MO Branch Influenza Virus 2018-03-08 Completed Universit y of Vaccine Quad .5 mL 00:00:00 [place] [facility] 6+ MO Branch Influenza Virus 2018-03-08 Completed Universit y of Vaccine Quad .5 mL 00:00:00 [facility] 6+ MO Branch Influenza Virus 2018-03-08 Completed Universit y of Vaccine Quad .5 mL 00:00:00 [place] [facility] 6+ MO Branch Influenza Virus 2018-03-08 Completed Universit y of Vaccine Quad .5 mL 00:00:00 [place] [facility] 6+ MO Branch Influenza Virus 2018-03-08 Completed Universit y of Vaccine Quad .5 mL 00:00:00 [place] [facility] 6+ MO Branch Influenza Virus 2018-03-08 Completed Universit y of Vaccine Quad .5 mL 00:00:00 [place] [facility] 6+ MO Branch Influenza Virus 2018-03-08 Completed Universit y of Vaccine Quad .5 mL 00:00:00 [facility] 6+ MO Branch Vital Signs Vital Name Observation Time Observation Value Comments Source Systolic blood 2022-01-16 21:58:00 134 mm[Hg] Univer sity of pressure [facility] Diastolic blood 2022-01-16 21:58:00 86 mm[Hg] Unive rsity of pressure [facility] [place] [facility] Heart rate 2022-01-16 21:58:00 68 /min Universi ty of [facility] [place] [facility] Body temperature 2022-01-16 21:58:00 36.5 Paula Univ ersity of [place] [facility] Body height 2022-01-16 21:58:00 162.6 cm Universi [facility] of [facility] [place] [facility] Body weight 2022-01-16 21:58:00 86.546 kg [facility] [place] [facility] BMI 2022-01-16 21:58:00 32.75 kg/m2 [facility] [place] [facility] Systolic blood 2021-09-26 15:57:00 126 mm[Hg] Univer sity of pressure [facility] Diastolic blood 2021-09-26 15:57:00 78 mm[Hg] Unive rsity of pressure [facility] Heart rate 2021-09-26 15:57:00 78 /min Universi ty [facility] [place] [facility] Respiratory rate 2021-09-26 15:53:00 18 /min Univ ersity of [facility] [place] [facility] Body height 2021-09-26 15:53:00 162.6 cm [facility]i [facility] [place] [facility] Body weight 2021-09-26 15:53:00 89.812 kg [facility] [place] [facility] BMI 2021-09-26 15:53:00 33.99 kg/m2 Universi ty of [facility] [place] [facility] Oxygen saturation in 2021-09-26 15:53:00 98 /min University of Arterial blood by [facility] Pulse oximetry Branch Systolic blood 2021-06-20 15:26:00 138 mm[Hg] Univer sity of pressure [facility] Diastolic blood 2021-06-20 15:26:00 80 mm[Hg] Unive rsity of pressure [facility] Heart rate 2021-06-20 15:26:00 81 /min Universi ty of [facility] [place] [facility] Body temperature 2021-06-20 15:25:00 37.06 Paula Univ ersity of [place] [facility] Respiratory rate 2021-06-20 15:25:00 16 /min Univ ersity of [facility] [place] [facility] Body height 2021-06-20 15:25:00 177.8 cm Universi [facility] [place] [facility] Body weight 2021-06-20 15:25:00 89.948 kg [facility] BMI 2021-06-20 15:25:00 28.45 kg/m2 [facility] Procedures Procedure Date / Time Performed Performing Clinician [facility] SARS-COV-2 COVID-19 2022-01-16 22:18:51 Brittnee Edward [facility] AJ-SUCROSE VACCINE Medical Bra nch 12 YRS+, BIVALENT 0.3ML, IM, (PFIZER LIRA TOP BOOSTER) SARS-COV-2 COVID-19 2021-09-26 20:37:08 Doctor Unassigned, No Un [facility] [place] VACCINE 12 Name Medical Branch YRS+,0.3ML,IM (PFIZER - LIRA TOP) Encounters Start End Encounter Admission Attending Care Care Encounter Source Date/Time Date/Time Type Type Clinicians Facility Department ID 2022-07-31 2022-07-31 Outpatient R [facility] [id number] Univers 10:00:00 [facility]22-07-27 2022-07-27 ANNAMARIA BarreraIT [id number] Univers 00:00:00 00:00:00 Management Zev Sanches HEALTH 350.1.13.10 ity [place] [id number] [facility] [address] [place] 2022-07-24 2022-07-24 Outpatient R [facility] [id number] Univers 10:00:00 10:00:00 BRITTNEE [facility] 2022-07-17 2022-07-17 Emergency Department Rn [facility] 1.2.840.114 [id number] Univers 11:00:00 11:15:00 Visit Brittnee Edward [facility] 350.1.13.10 ity of [place] [id number] [facility] 316 Branch 2022-07-17 2022-07-17 Outpatient R [facility] [id number] Univers 11:00:00 11:00:00 [facility] 2022-07-17 2022-07-17 ANTONIETA Lozoya 1.2.907.156 [id number] Univers 00:00:00 00:00:00 Management Jarek L Y HEALTH 350.1.13.10 ity [place] [id number] [address] 2022-07-17 2022-07-17 Case Benja, UNIVERSIT 1.2.888.351 [id number] Univers 00:00:00 00:00:00 Management Zev L Y HEALTH 350.1.13.10 ity [place] [id number] [address] 2022-07-16 2022-07-16 Charmaine Newman, [facility] 1.2.840.114 [id number] Univers 00:00:00 00:00:00 Jenn L Y HEALTH 350.1.13.10 ity [place] [id number] [address] 2022-07-16 2022-07-16 Case Corrie, [facility] 1.2.840.114 [id number] Univers 00:00:00 00:00:00 Management Nechelle Y HEALTH 350.1.13.10 ity [place] [id number] [address] 2022-02-19 2022-02-19 Emergency Department Rn Lucius, Rajwinder Lab Main [facility] 1.2.8 40.114 [id number] Univers 12:00:00 12:15:00 Visit Brittnee Edward 350.1.13.10 ity of [place] [id number] [facility] 353 [facility] 2022-02-19 2022-02-19 Outpatient R WAGNER [facility] [id number] Univers 12:00:00 12:00:[address] [facility] 2022-02-10 2022-02-10 Allen Corrie, [facility] 1.2.840.114 [id number] Univers 00:00:00 00:00:00 Management Nechelle Y HEALTH 350.1.13.10 ity of [place] [id number] [place] [address] [place] 2022-01-30 2022-01-30 Patient [facility], [facility]ERSIT 1.2.059.118 [id number] Univers 00:00:00 00:00:00 Secure Msg [facility] 350.1.13.10 ity [place] [id number] [address] 2022-01-29 2022-01-29 Telephone [facility], [facility] 1.2.840.114 [id number] Univers 00:00:00 00:00:00 [facility] 350.1.13.10 i ty [place] [id number] [address] 2022-01-29 2022-01-29 Patient [facility], [facility] 1.2.490.756 [id number] Univers 00:00:00 00:00:00 Secure Msg [facility] 350.1.13.10 ity of [place] [id number] [address] 2022-01-29 2022-01-29 Patient Doctor RACHEL 1.2.840.114 [id number] Univers 00:00:00 00:00:00 Secure Msg Unassigned, TANESHA 350.1.13.10 ity of [place] [facility] 4.2.7.2.686 Edgardo as [id number] [address] 2022-01-16 2022-01-16 Office [facility] 1.2.396.144 [id number] Univers 15:30:00 16:00:00 Visit [facility] 350.1.13.10 i ty [place] [id number] [address] 2022-01-16 2022-01-16 Outpatient R [facility] [id number] Univers 15:30:00 15:30:00 [facility] 2022-01-12 2022-01-12 Outpatient R [facility] [id number] Univers 14:30:00 14:30:00 [facility] 2022-01-07 2022-01-07 Case Paty, [facility] 1.2.840.114 [id number] Univers 00:00:00 00:00:00 Management Jenn L Y HEALTH 350.1.13.10 ity [place] [id number] [address] 2021-12-31 2021-12-31 Case Gifty, [facility] 1.2.840.114 [id number] Univers 00:00:00 00:00:00 Management Erika L Y HEALTH 350.1.13.10 ity of [place] [id number] [address] 2021-09-29 2021-09-29 Case Felix, [facility] 1.2.263.779 [id number] Univers 00:00:00 00:00:00 Management Holly L Y HEALTH 350.1.13.10 ity of [place] [id number] [address] 2021-09-26 2021-09-26 Imm/Inj Vaccine, Gal [facility] 1.2.840 .114 [id number] Univers 10:40:00 10:50:00 Visit Pancho Chin [facility] HEALTH 350.1.13.10 ity of [place] [id number] [address] 2021-09-26 2021-09-26 Office [facility], [facility] 1.2.997.135 [id number] Univers 10:00:00 10:30:00 Visit [facility] 350.1.13.10 i ty of [place] [id number] [address] 2021-09-26 2021-09-26 Outpatient R WAGNER [facility] [id number] Univers 10:00:00 10:00:00 BRITTNEE [facility] 2021-09-26 2021-09-26 Case Irma, [facility] 1.2.410.269 [id number] Univers 00:00:00 00:00:00 Management Jarek L Y HEALTH 350.1.13.10 ity of [place] [id number] [place] [address] [place] 2021-09-26 2021-09-26 Case Felix, [facility] 1.2.394.665 [id number] Univers 00:00:00 00:00:00 Management Holly L Y HEALTH 350.1.13.10 ity of [place] [id number] [place] [address] Branch 2021-09-25 2021-09-25 Case Paty, [facility] 1.2.840.114 [id number] Univers 00:00:00 00:00:00 Management Jenn L Y HEALTH 350.1.13.10 ity of [place] [id number] [address] 2021-06-20 2021-06-20 Emergency Department Rn [facility] 1.2.840.114 [id number] Univers 11:45:00 12:00:00 Visit [facility] 350.1.13.10 ity of [place] [id number] [address] 2021-06-20 2021-06-20 Outpatient R [facility] [id number] Univers 11:45:00 11:45:00 [facility] 2021-06-20 2021-06-20 Outpatient R [facility] [id number] Univers 10:00:00 11:27:48 [facility] 2021-06-20 2021-06-20 Office [facility] 1.2.610.150 [id number] Univers 10:00:00 11:27:48 Visit [facility] 350.1.13.10 i ty [place] [id number] [address] 2021-06-20 2021-06-20 Case Irma, [facility] 1.2.370.784 [id number] Univers 00:00:00 00:00:00 Management Jarek L Y HEALTH 350.1.13.10 ity of [place] [id number] [address] 2021-06-18 2021-06-18 [place] [facility] 1.2.840.114 [id number] Univers 00:00:00 00:00:00 Jenn L Y HEALTH 350.1.13.10 ity of [place] [id number] [address] 2021-06-16 2021-06-16 Case Newman, [facility] 1.2.840.114 [id number] Univers 00:00:00 00:00:00 Management Jenn L Y HEALTH 350.1.13.10 ity of [place] [id number] [address] 2021-06-16 2021-06-16 [facility]im Lambert [facility] 1.2.840.114 [id number] Univers 00:00:00 00:00:00 Zhanna A Y HEALTH 350.1.13.10 ity of [place] [id number] [address] 2021-05-12 2021-05-12 Allen Washington [facility] 1.2.121.495 [id number] Univers 00:00:00 00:00:00 Management Holly L Y HEALTH 350.1.13.10 ity of [place] [id number] [address] 2021-05-09 2021-05-09 Outpatient [facility] [id number] Univers 11:00:00 11:00:[address] [facility] 2021-05-09 2021-05-09 Outpatient [facility] [id number] Univers 11:00:00 11:00:[address] [facility] 2021-05-09 2021-05-09 [facility] [place] [facility] 1.2.376.547 [id number] Univers 00:00:00 00:00:00 Management Holly L Y HEALTH 350.1.13.10 ity of [place] [id number] [address] 2021-05-02 2021-05-02 [facility] 1.2.219.750 [id number] Univers 00:00:00 00:00:00 Management Holly L Y HEALTH 350.1.13.10 ity of [place] [id number] [address] 2021-02-11 2021-02-11 [facility] 1.2.327.169 [id number] Univers 00:00:00 00:00:00 Management Holly L Y HEALTH 350.1.13.10 ity of [place] [id number] [address] 2021-02-03 2021-02-03 [facility] 1.2.584.963 [id number] Univers 00:00:00 00:00:00 Management Holly L Y HEALTH 350.1.13.10 ity of [place] [id number] [address] 2021-01-31 2021-01-31 [facility] [id number] Univers 00:00:00 00:00:00 Brittnee Y HEALTH 350.1.13.10 i ty of [place] [id number] [address] 2021-01-27 2021-01-27 [facility] 1.2.742.413 [id number] Univers 00:00:00 00:00:00 Management Holly L Y HEALTH 350.1.13.10 ity of [place] [id number] [address] 2021-01-08 2021-01-08 [facility] 1.2.638.132 [id number] Univers 00:00:00 00:00:00 Management Holly L Y HEALTH 350.1.13.10 ity of [place] [id number] [facility] 089 Branch 2021-01-08 2021-01-08 Case Felix [facility] 1.2.292.316 [id number] Univers 00:00:00 00:00:00 Management Holly L Y HEALTH 350.1.13.10 ity of [place] [id number] [facility] 089 Branch 2021-01-03 2021-01-03 Case Corrie, UN[facility]ERSIT 1.2.840.114 [id number] Univers 00:00:00 00:00:00 Management Nechelle Y HEALTH 350.1.13.10 ity of [place] [id number] [facility] 089 Branch 2021-01-01 2021-01-01 Case Corrie, [facility]ERS[facility] 1.2.840.114 [id number] Univers 00:00:00 00:00:00 Management Nechelle Y HEALTH 350.1.13.10 ity of [place] [id number] [place] [address] Branch 2020-12-20 2020-12-20 [id number] Univers 12:00:00 12:00:[address] [facility] 2020-12-20 2020-12-20 Emergency Department Rn [facility] 1.2.840.114 [id number] Univers 11:37:21 11:41:21 Visit Brittnee Edward [facility] 350.1.13.10 ity of CL[place] 4[place] [id number] [facility] 316 Branch 2020-12-20 2020-12-20 Imm/Inj Vaccine, Gal [facility] 1.2.840 .114 [id number] Univers 11:17:07 11:27:07 Visit Brittnee Edward [facility] 350.1.13.10 ity of CL[place] 4[place] [id number] [facility] 085 Branch 2020-12-20 2020-12-20 Office Wagner, [facility] 1.2.026.056 [id number] Univers 10:00:00 10:30:00 Visit Brittnee Y HEALTH 350.1.13.10 i ty of [place] [id number] [address] 2020-12-20 2020-12-20 Outpatient Flaquita EDWARD, [facility] [id number] Univers 10:00:00 10:00:00 BRITTNEE ity of [facility] 2020-12-19 2020-12-19 Case Pranav Ramirez, [facility] 1.2.840.114 [id number] Univers 00:00:00 00:00:00 Management Erika R Y HEALTH 350.1.13.10 ity of [place] [id number] [address] 2020-12-16 2020-12-16 Case Newman, [facility] 1.2.840.114 [id number] Univers 00:00:00 00:00:00 Management Jenn L Y HEALTH 350.1.13.10 ity of [place] [id number] [address] 2020-11-07 2020-11-07 Case Felix, [facility] 1.2.104.070 [id number] Univers 00:00:00 00:00:00 Management Hloly L Y HEALTH 350.1.13.10 ity of [place] [id number] [address] 2020-10-11 2020-10-11 Case Felix, [facility] 1.2.496.849 [id number] Univers 00:00:00 00:00:00 Management Holly L Y HEALTH 350.1.13.10 ity of [place] [id number] [address] 2020-10-09 2020-10-09 Case Gifty, [facility] 1.2.840.114 [id number] Univers 00:00:00 00:00:00 Management Erika L Y HEALTH 350.1.13.10 ity of [place] [id number] [address] 2020-09-18 2020-09-18 Case Gifty, [facility] 1.2.840.114 [id number] Univers 00:00:00 00:00:00 Management Erika L Y HEALTH 350.1.13.10 ity of [place] [id number] [place] [address] [place] 2020-08-02 2020-08-02 [facility] 1.2.769.066 [id number] Univers 00:00:00 00:00:00 [facility] 350.1.13.10 i ty of [place] [id number] [place] [address] [place] 2020-06-19 2020-06-19 Emergency Department Rn [facility] 1.2.840.114 [id number] Univers 13:20:49 13:35:49 Visit [facility] 350.1.13.10 ity of [place] [id number] [place] [address] Branch 2020-06-19 2020-06-19 Office [facility] 1.2.676.327 [id number] Univers 11:09:42 11:39:42 Visit [facility] 350.1.13.10 i ty of [place] [id number] [place] [address] [place] 2020-06-19 2020-06-19 [facility] [id number] Univers 11:00:00 11:00:00 BRITTNEE ity of [facility] 2020-06-17 2020-06-17 Allen [place], [facility] 1.2.681.775 [id number] Univers 00:00:00 00:00:00 Management Holly L Y HEALTH 350.1.13.10 ity of [place] [id number] [address] 2020-06-17 2020-06-17 [facility] 1.2.840.114 [id number] Univers 00:00:00 00:00:00 Jud Y HEALTH 350.1.13.10 ity [place] [id number] [address] 2020-06-17 2020-06-17 Case Felix, [facility] 1.2.575.060 [id number] Univers 00:00:00 00:00:00 Management Holly L Y HEALTH 350.1.13.10 ity of [place] [id number] [address] 2020-05-21 2020-05-21 Case Corrie, [facility] 1.2.840.114 [id number] Univers 00:00:00 00:00:00 Management Nechelle Y HEALTH 350.1.13.10 ity of [place] [id number] [address] 2020-05-17 2020-05-17 Telephone [facility] 1.2.840.114 [id number] Univers 00:00:00 00:00:00 Nechelle Y HEALTH 350.1.13.10 ity of [place] [id number] [address] 2020-05-01 2020-05-01 Outpatient Flaquita MICHELLE, [facility] [id number] Univers 11:40:00 11:40:00 BRIANNA ity of [facility] 2020-02-06 2020-02-06 Case Gifty, [facility] 1.2.840.114 [id number] Univers 00:00:00 00:00:00 Management Erika L Y HEALTH 350.1.13.10 ity [place] [id number] [address] 2020-01-31 2020-01-31 Ephraim Edward [facility] 1.2.511.924 [id number] Univers 00:00:00 00:00:00 Brittnee Y HEALTH 350.1.13.10 i ty of [place] [id number] [address] 2019-12-20 2019-12-20 Emergency Department Rn [facility] 1.2.840.114 [id number] Univers 12:22:52 12:37:52 Visit Brittnee Edward [facility] 350.1.13.10 ity of [place] [id number] [address] 2019-12-20 2019-12-20 Office [facility], [facility] 1.2.257.148 [id number] Univers 11:00:05 12:19:49 [facility] 350.1.13.10 i ty of [id number] [id number] [address] 2019-12-20 2019-12-20 Outpatient R [facility] [id number] [facility] 10:30:00 10:30:00 [facility] 2019-12-19 2019-12-19 [facility]phone [facility] [id number] Univers 00:00:00 00:00:00 [facility] R HEALTH [id number] [id number] [phone] [address] 2019-12-05 2019-12-05 Outpatient R [facility] [id number] Univers 10:30:00 10:30:00 [facility] 2019-12-04 2019-12-04 [facility]phone [facility] [id number] Univers 00:00:00 00:00:00 Jarek L Y HEALTH [id number] [id number] [address] 2019-11-28 2019-11-28 [facility] [id number] Univers 00:00:00 00:00:00 Management Erika L Y HEALTH [id number] [id number] [phone] [address] 2019-11-14 2019-11-14 Outpatient R [facility] [id number] Univers 11:30:00 11:30:00 [facility] 2019-10-26 2019-10-26 Case Paty, UNIVERSIT 1.2.840.114 [id number] Univers 00:00:00 00:00:00 Management Jenn L Y HEALTH 350.1.13.10 [place] [phone] [address] 2019-10-20 2019-10-20 Telephone ANNAMARIA NewmanIT 1.2.840.114 [id number] Univers 00:00:00 00:00:00 Jenn L Y HEALTH 350.1.13.10 [place] [id number] [address] 2019-10-18 2019-10-18 Charmaine Durbin [facility] 1.2.840.114 [id number] Univers 00:00:00 00:00:00 Erika L Y HEALTH 350.1.13.10 [place] [id number] [address] 2019-10-06 2019-10-06 [facility] [id number] Univers 16:00:00 16:00:[address] [facility] 2019-10-05 2019-10-05 ANNAMARIA Hawthorne 1.2.840.114 [id number] Univers 00:00:00 00:00:00 Jenn L Y HEALTH 350.1.13.10 [place] [phone] [address] 2019-09-12 2019-09-12 [facility] 1.2.840.114 [id number] Univers 00:00:00 00:00:00 Management Erika L Y HEALTH 350.1.13.10 [place] [phone] [address] 2019-09-05 2019-09-05 Case Pranav Ramirez, UNIVERSIT 1.2.840.114 [id number] Univers 00:00:00 00:00:00 Management Erika R Y HEALTH 350.1.13.10 [place] [phone] [address] 2019-07-04 2019-07-04 ANNAMARIA ValenzuelaIT [id number] Univers 00:00:00 00:00:00 Management Holly L Y HEALTH 350.1.13.10 [place] [phone] [address] 2019-05-24 2019-05-24 ANNAMARIA ValenzuelaIT [id number] Univers 00:00:00 00:00:00 Management Holly L Y HEALTH 350.1.13.10 [place] [id number] [address] 2019-05-24 2019-05-24 ANNAMARIA ValenzuelaIT 1.2.514.585 [id number] Univers 00:00:00 00:00:00 Management Holly L Y HEALTH 350.1.13.10 [place] [phone] [address] 2019-04-10 2019-04-10 Allen Washington [facility] [id number] Univers 00:00:00 00:00:00 Management Holly L Y HEALTH 350.1.13.10 [place] [id number] [address] 2019-04-07 2019-04-07 Office [facility], [facility] [id number] Univers 16:06:14 17:01:48 Visit [facility] HEALTH 350.1.13.10 i ty [place] [id number] [address] 2019-04-07 2019-04-07 Outpatient R WAGNER [facility] [id number] Univers 16:00:00 17:01:48 BRITTNEE ity of [facility] 2019-04-07 2019-04-07 Orders Doctor RAMOS 1.2.840.114 [id number] Univers 00:00:00 00:00:00 Only Unassigned, TANESHA 350.1.13.10 ity of [facility] 4.2.7.2.686 [place] as [phone] [place] [address] [address] 2019-04-07 2019-04-07 Case Felix, [facility]ERSIT [id number] Univers 00:00:00 00:00:00 Management Holly L Y HEALTH 350.1.13.10 [place] [id number] [place] [id number] [place] 2019-03-29 2019-03-29 Case Gifty, UNIVERSIT 1.2.840.114 [id number] Univers 00:00:00 00:00:00 Management Erika L Y HEALTH 350.1.13.10 [place] [phone] [address] 2019-03-21 2019-03-21 Case Gifty, UN[facility]ERSIT 1.2.840.114 [id number] Univers 00:00:00 00:00:00 Management Eirka L Y HEALTH 350.1.13.10 it[place] [phone] [address] 2019-01-23 2019-01-25 Inpatient X ELMAJACK, [facility] [id number] [facility] 10:58:16 10:52:[address] [facility] 2018-11-04 2018-11-04 Emergency Department Rn [facility]IT 1.2.840.114 [id number] [facility] 14:23:52 14:30:23 Visit Wagner Brittnee [facility] 350.1.13.10 ity [place] [phone] [address] 2018-11-04 2018-11-04 Office [facility] 1.2.274.491 [id number] [facility] 13:38:01 14:18:37 Visit [facility] 350.1.13.10 i ty [place] [phone] [address] 2018-11-04 2018-11-04 Orders Doctor RAMOS 1.2.840.114 [id number] Univers 00:00:00 00:00:00 Only Unassigned, TANESHA 350.1.13.10 ity of [facility] 4.2.7.2.686 [place] as [id number] [facility] [address] 2018-10-31 2018-10-31 Case Paty, [facility] 1.2.840.114 [id number] Univers 00:00:00 00:00:00 Management Jenn L Y HEALTH 350.1.13.10 [place] [id number] [address] 2018-10-27 2018-10-27 Telephone Pranav Chavezco, [facility] 1.2.840.114 [id number] Univers 00:00:00 00:00:00 Erika R Y HEALTH 350.1.13.10 [place] [id number] [address] 2018-10-20 2018-10-20 Telephone Pranav [facility] 1.2.840.114 [id number] Univers 00:00:00 00:00:00 Erika R Y HEALTH 350.1.13.10 [place] [id number] [address] 2018-09-29 2018-09-29 Telephone Pranav Chavezco, [facility] 1.2.840.114 [id number] Univers 00:00:00 00:00:00 Erika R Y HEALTH 350.1.13.10 [place] [id number] [address] 2018-09-27 2018-09-27 [facility] 1.2.840.114 [id number] Univers 00:00:00 00:00:00 Jenn L Y HEALTH 350.1.13.10 [place] [id number] [address] 2018-09-22 2018-09-22 Case Paty, [facility] 1.2.840.114 [id number] Univers 00:00:00 00:00:00 Management Jenn L Y HEALTH 350.1.13.10 ity of CLINICS 4.2.7.2.686 Jericho lopez [phone] [facility] [address] Results This patient has no known results.
[2022-08-08] MEDS ORDERED: LIDOCAINE 1% MPF 30 ML VIAL ONE (04:20)
[2022-08-08] MEDS ORDERED: SMZ./TMP. 800/160 MG TABLET ONE (04:20)
[2022-08-08] MEDS ORDERED: IBUPROFEN 400 MG TAB ONE (04:20)
[2022-08-08] MEDS ORDERED: CODEINE 30MG/APAP 300MG TAB ONE (04:20)
[2022-08-08] MEDS ORDERED: ONDANSETRON 4 MG (ODT) TAB ONE (04:20)
--- NOTE | 2022-08-08 07:19 | ER ---
Nurse's Notes [facility] Name: Alden Corona Age: 42 yrs Sex: Male : 1980 Arrival Date: 08/08/2022 Time: 03:15 Bed 10 Private MD: Diagnosis: Left great toe paronychia Presentation: 08/08 03:46 Chief complaint: Patient states: left great toe pain of 8 with redness,onset yesterday. pf1 Patient stated had a pedicure done on 08/02/22. Patient denies any injury. Coronavirus screen: Vaccine status: Patient reports receiving the 2nd dose of the covid vaccine. 3 doses of pfizer Client denies travel out of the [place] in the last 14 days. At this time, the client does not indicate any symptoms associated with coronavirus-19. Ebola Screen: Patient negative for fever greater than or equal to 101.5 degrees Fahrenheit, and additional compatible Ebola Virus Disease symptoms. Initial Sepsis Screen: Does the patient meet any 2 criteria? No. Patient's initial sepsis screen is negative. Does the patient have a suspected source of infection? No. Patient's initial sepsis screen is negative. Risk Assessment: Do you want to hurt yourself or someone else? Patient reports no desire to harm self or others. 03:46 Method Of Arrival: Ambulatory pf1 04:07 Acuity: SARA 4 pf1 Historical: - Allergies: 03:49 PENICILLINS; pf1 - PMHx: 03:49 HIV; pf1 - PSHx: 03:49 None; pf1 - Immunization history:: Adult Immunizations up to date, Last tetanus immunization: < 5 years ago Flu vaccine is up to date. - Social history:: Smoking status: Reported history of juuling and/or vaping. Patient/guardian denies using alcohol, street drugs. - Family history:: not pertinent. Screenin:00 [facility] ED Fall Risk Assessment (Adult) History of falling in the last 3 months, pf1 including since admission No falls in past 3 months (0 pts) Confusion or Disorientation No (0 pts) Intoxicated or Sedated No (0 pts) Impaired Gait No (0 pts) Mobility Assist Device Used No (0 pt) Altered Elimination No (0 pt) Score/Fall Risk Level 0 - 2 = Low Risk Oriented to surroundings, Maintained a safe environment, Educated pt \T\ family on fall prevention, incl call for assistance when getting out of bed, Assessed \T\ reinforced patient's understanding of fall precautions, Provided non-skid footwear, Hourly rounding (assess needs \T\ fall precautionary measures) done, Used ambulatory aids as needed (educated on \T\ assisted with), Used gait belt as appropriate. Abuse screen: Denies threats or abuse. Nutritional screening: No deficits noted. Tuberculosis screening: No symptoms or risk factors identified. Assessment: 03:50 General: Appears in no apparent distress. comfortable, well groomed, well developed, pf1 Behavior is calm, cooperative, appropriate for age, quiet. 03:50 Pain: Complains of pain in left first toe Pain currently is 8 out of 10 on a pain pf1 scale. Neuro: No deficits noted. Level of Consciousness is awake, alert, obeys commands, Oriented to person, place, time, situation. Cardiovascular: No deficits noted. Capillary refill < 3 seconds Patient's skin is warm and dry. Respiratory: No deficits noted. Airway is patent Respiratory effort is even, unlabored, Respiratory pattern is regular, symmetrical. GI: No deficits noted. No signs and/or symptoms were reported involving the gastrointestinal system. : No deficits noted. No signs and/or symptoms were reported regarding the genitourinary system. EENT: No deficits noted. No signs and/or symptoms were reported regarding the EENT system. Derm: No deficits noted. No signs and/or symptoms reported regarding the dermatologic system. Musculoskeletal: Capillary refill < 3 seconds, Swelling present in left first toe with redness. 05:00 Reassessment: Patient appears in no apparent distress at this time. Patient and/or pf1 family updated on plan of care and expected duration. Pain level reassessed. Patient is alert, oriented x 3, equal unlabored respirations, skin warm/dry/pink. Patient states symptoms have improved. 06:00 Reassessment: Patient appears in no apparent distress at this time. Patient and/or pf1 family updated on plan of care and expected duration. Pain level reassessed. Patient is alert, oriented x 3, equal unlabored respirations, skin warm/dry/pink. Patient states symptoms have improved. Vital Signs: 03:46 BP 145 / 96; Pulse 56; Resp 16; Temp 97.9; Pulse Ox 100% on R/A; Weight 90.72 kg; pf1 Height 5 ft. 11 in. ; Pain 8/10; 05:00 BP 139 / 89; Pulse 58; Resp 16; Pulse Ox 100% ; pf1 07:00 BP 148 / 91; Pulse 60; Resp 18; Temp 98.2; Pulse Ox 100% on R/A; Pain 1/10; pf1 03:46 Body Mass Index 27.89 (90.72 kg, 180.34 cm) pf1 03:46 Pain Scale: Adult pf1 07:00 Pain Scale: Adult pf1 ED Course: 03:16 Patient arrived in ED. [email or web address] 03:49 Triage completed. pf1 04:00 Steven Dixon MD is Attending Physician. sp4 04:00 Patient has correct armband on for positive identification. Bed in low position. Call pf1 light in reach. 04:00 Arm band placed on right wrist. pf1 07:00 No provider procedures requiring assistance completed. Patient did not have IV access pf1 during this emergency room visit. Administered Medications: 04:20 Drug: Acetaminophen-Codeine PO (300 mg-30 mg) 2 tabs Route: PO; pf1 05:20 Follow up: Response: No adverse reaction; Marked relief of symptoms; Pain is decreased pf1 04:20 Drug: Trimethoprim-Sulfamethoxazole PO (160 mg-800 mg (DS) 1 tablet Route: PO; pf1 07:22 Follow up: Response: No adverse reaction; Marked relief of symptoms pf1 04:20 Drug: Ibuprofen PO 800 mg Route: PO; pf1 05:20 Follow up: Response: No adverse reaction; Marked relief of symptoms; Pain is decreased pf1 04:20 Drug: Ondansetron PO 4 mg Route: PO; pf1 05:20 Follow up: Response: No adverse reaction; Marked relief of symptoms; Pain is decreased pf1 07:00 Drug: Lidocaine Infiltration (1 %) 30 ml Volume: 20 ml; Route: Infiltration; pf1 Medication: 07:00 VIS not applicable for this client. pf1 Outcome: 07:18 Discharge ordered by . sp4 07:25 Discharged to home ambulatory, with friend. pf1 07:25 Condition: improved 07:25 Discharge instructions given to patient, Instructed on discharge instructions, follow pf1 up and referral plans. Demonstrated understanding of instructions, follow-up care, medications, Prescriptions given X 2. 07:33 Patient left the ED. pf1 Signatures: Alison Hernandez jj6 Elena Caicedo RN RN pf1 Steven Dixon MD MD sp4 Corrections: (The following items were deleted from the chart) 04:07 03:46 Acuity: SARA 5 pf1 pf1
--- NOTE | 2022-08-08 07:19 | EDPHYS ---
Physician Documentation [facility] Name: Alden Corona Age: 42 yrs Sex: Male : 1980 Arrival Date: 08/08/2022 Time: 03:15 Bed 10 Private MD: ED Physician Steven Dixon HPI: 08/08 04:01 This 42 yrs old Black Male presents to ER via Ambulatory with complaints of TOE sp4 INFECTION/SWELLING/PAIN. 04:01 42-year-old male presents with a left great toe infection.. sp4 07:13 Patient presents with a left great toe pain starting several days ago after he had a sp4 pedicure. The toe appears swollen and red.. Historical: - Allergies: 03:49 PENICILLINS; pf1 - PMHx: 03:49 HIV; pf1 - PSHx: 03:49 None; pf1 - Immunization history:: Adult Immunizations up to date, Last tetanus immunization: < 5 years ago Flu vaccine is up to date. - Social history:: Smoking status: Reported history of juuling and/or vaping. Patient/guardian denies using alcohol, street drugs. - Family history:: not pertinent. ROS: 07:13 Constitutional: Negative for fever, chills, and weight loss, MS/Extremity: Negative for sp4 injury and deformity, positive for pain left great toe. Skin: Negative for injury, rash, positive for left great toe pain swelling and redness. 07:13 All other systems are negative. Exam: 07:13 Constitutional: This is a well developed, well nourished patient who is awake, alert, sp4 and in no acute distress. Head/Face: Normocephalic, atraumatic. Eyes: Pupils equal round and reactive to light, extra-ocular motions intact. Lids and lashes normal. Conjunctiva and sclera are not injected. Cornea within normal limits. Periorbital areas with no swelling, redness, or edema. ENT: Nares patent. No nasal discharge, no septal abnormalities noted. Tympanic membranes are normal and external auditory canals are clear. Oropharynx with no redness, swelling, or masses, exudates, or evidence of obstruction, uvula midline. Mucous membranes moist. Neck: Trachea midline, no thyromegaly or masses palpated, and no cervical lymphadenopathy. Supple, full range of motion without nuchal rigidity, or vertebral point tenderness. Chest/axilla: Normal chest wall appearance and motion. Nontender with no deformity. No lesions are appreciated. Cardiovascular: Regular rate and rhythm with a normal S1 and S2. No gallops, murmurs, or rubs. Normal PMI, no JVD. No pulse deficits. Respiratory: Lungs have equal breath sounds bilaterally, clear to auscultation and percussion. No rales, rhonchi or wheezes noted. No increased work of breathing, no retractions or nasal flaring. Abdomen/GI: Soft, non-tender, with normal bowel sounds. No distension or tympany. No guarding or rebound. No evidence of tenderness throughout. Back: No spinal tenderness. No costovertebral tenderness. Skin: Warm, dry with normal turgor. Normal color with no rashes, no lesions, and no evidence of cellulitis. MS/ Extremity: Pulses equal, no cyanosis. Neurovascular intact. Full, normal range of motion. Left great toe pain, tenderness, discoloration indicative of infection. Neuro: Awake and alert, GCS 15, oriented to person, place, time, and situation. Cranial nerves II-XII grossly intact. Motor strength 5/5 in all extremities. Sensory grossly intact. Psych: Awake, alert, with orientation to person, place and time. Behavior, mood, and affect are within normal limits Vital Signs: 03:46 BP 145 / 96; Pulse 56; Resp 16; Temp 97.9; Pulse Ox 100% on R/A; Weight 90.72 kg; pf1 Height 5 ft. 11 in. ; Pain 8/10; 05:00 BP 139 / 89; Pulse 58; Resp 16; Pulse Ox 100% ; pf1 07:00 BP 148 / 91; Pulse 60; Resp 18; Temp 98.2; Pulse Ox 100% on R/A; Pain 1/10; pf1 03:46 Body Mass Index 27.89 (90.72 kg, 180.34 cm) pf1 03:46 Pain Scale: Adult pf1 07:00 Pain Scale: Adult pf1 Procedures: 07:13 I \T\ D: Incision and drainage was performed for an abscess of the left left first toe sp4 and Left first toenail Prepped with Betadine, Anesthetized with 10 ml's 1% Lidocaine. Digital block left great toe.. Incised with #11 blade. Drained moderate amount purulent fluid. bloody fluid. Packed with No packing. Dressing: sterile 4x4 gauze, Kerlix wrap the patient tolerated the procedure well, Advised daily dressing changes. MDM: 04:01 Patient medically screened. sp4 07:13 Differential Diagnosis Cellulitis, paronychia, felon . Data reviewed: vital signs, sp4 nurses notes. ED course: Left great toe paronychia was drained and patient advised on dressing changes. Will prescribe Bactrim for 10 days.. 08/08 04:00 Order name: Incision \T\ Drainage Setup; Complete Time: 07:23 sp4 Administered Medications: 04:20 Drug: Acetaminophen-Codeine PO (300 mg-30 mg) 2 tabs Route: PO; pf1 05:20 Follow up: Response: No adverse reaction; Marked relief of symptoms; Pain is decreased pf1 04:20 Drug: Trimethoprim-Sulfamethoxazole PO (160 mg-800 mg (DS) 1 tablet Route: PO; pf1 07:22 Follow up: Response: No adverse reaction; Marked relief of symptoms pf1 04:20 Drug: Ibuprofen PO 800 mg Route: PO; pf1 05:20 Follow up: Response: No adverse reaction; Marked relief of symptoms; Pain is decreased pf1 04:20 Drug: Ondansetron PO 4 mg Route: PO; pf1 05:20 Follow up: Response: No adverse reaction; Marked relief of symptoms; Pain is decreased pf1 07:00 Drug: Lidocaine Infiltration (1 %) 30 ml Volume: 20 ml; Route: Infiltration; pf1 Disposition Summary: 08/08/22 07:18 Discharge Ordered Location: Home sp4 Problem: new sp4 Symptoms: have improved sp4 Condition: Stable sp4 Diagnosis - Left great toe paronychia sp4 Followup: sp4 - With: Private Physician - When: 7 - 10 days - Reason: Recheck today's complaints Discharge Instructions: - Discharge Summary Sheet sp4 - Paronychia, Sbsi-si-[place] sp4 Prescriptions: - Ibuprofen 600 mg Oral Tablet - take 1 tablet by ORAL route every 6 hours As needed take with food; 30 tablet; sp4 Refills: 0, Product Selection Permitted - Bactrim DS 800-160 mg Oral Tablet - take 1 tablet by ORAL route every 12 hours for 10 days; 20 tablet; Refills: 0, sp4 Product Selection Permitted Signatures: Elena Caicedo, DORINDA RN pf1 Steven Dixon MD MD sp4
[2022-08-08 07:38] VITALS: O2SAT 100
[2022-08-08 07:42] VITALS: BP 148/91; TEMP 98.2
== END 2022-08-08 07:33 | disposition home or self-care (01) ==
LOC: ER 03:15
PROC: 0H9NXZZ Drainage of Left Foot Skin, External Approach (ICD-10-PCS; principal; 2022-08-08)
DX: L03.032 Cellulitis of left toe (principal); Z88.0 Allergy status to penicillin
CPT/HCPCS: 99283; 10060; Q0162; J2001